=== PATIENT | female | born 1955 | race Caucasian/White ===

== ENCOUNTER 2017-01-08 13:11 | Emergency (ER) | payer OTHER ==
[2017-01-08] MEDS ORDERED: BENADRYL 50 MG/ML IV ONE (14:39)
[2017-01-08] MEDS ORDERED: Hydromorphone 1 mg/ml Ampule IV ONE (14:39)
[2017-01-08] MEDS ORDERED: Hydromorphone 1 mg/ml Ampule ONE (14:49)
[2017-01-08] MEDS ORDERED: BENADRYL 50 MG/ML ONE (14:49)
[2017-01-08 15:13] LABS: BASOPHIL % 0.3 % (0.0-0.4); Eosinophil % 0.5 % (0.00-5.0); Granulocytes % 63.6 % (36.0-66.0); Lymphocytes % 30.4 % (24.0-44.0); Mean Cell Volume 91.6 fl (78-100); Mean Corpuscular Hemoglobin 29.6 pg (26-32); Mean Platelet Volume 9.5 fl (6-9.5); Monocytes % 5.2 % (0.0-12.0); Platelet Count 322 K/mm3 (150-450); Red Blood Count 4.87 M/mm3 (4.1-5.4); Red Cell Distribution Width 14.9 % (11.5-14.0); White Blood Count 7.7 K/mm3 (4.0-10.5)
[2017-01-08 15:22] LABS: ALBUMIN 3.8 g/dL (3.4-5.0); ALKALINE PHOSPHATASE 112 U/L (46-116); ANION GAP 14.9 MEQ/L (5-15); BLOOD UREA NITROGEN 15 mg/dL (9-20); CHLORIDE 104 mEq/L (98-107); Carbon Dioxide 26.6 mEq/L (21-32); Glucose 102 MG/DL (70-110); SGOT/AST 31 U/L (15-37); SGPT/ALT 37 U/L (12-78); SODIUM 142 mEq/L (136-145); Total Protein 8.4 gm/dL (6.4-8.2)
--- NOTE | 2017-01-08 15:29 | ERPHSYRPT ---
- History of Present Illness Time Seen by Provider: 01/08/17 14:28 Source: patient Patient Subjective Stated Complaint: pt states 4 days ago she fell up against a rocking chair and injured rigth ribs and right mid back. Triage Nursing Assessment: pt pink,warm, dry. pt ambulated into Er without difficuly. no bruising or deformity noted to right ribs or back. old bruise noted to left posterior upper leg. Physician History: CC: right rib injury HX; 61 y/o patient of Dr Bonner. She tripped while cleaning a bedroom Saturday ( 5 days ago). She struck right anterior ribs on a chair. Pain in the ribs and abdomen has worsened. Not short of air. No blood thinners. Aching pain and sometimes sharp. ILL: HTN, high chol, GERD Here with a friend Allergies/Adverse Reactions: bupropion HCl [From Wellbutrin] Allergy (Verified 01/08/17 13:45) Home Medications: Alprazolam [Xanax 0.5 mg] 0.5 mg PO BIDPRN PRN 11/27/15 [History] Bisoprolol Fumarate/Hctz [Ziac 10-6.25 mg Tablet] 1 each PO DAILY 11/27/15 [ History] Omeprazole [Prilosec] 40 mg PO DAILY 11/27/15 [History] Simvastatin 20 mg PO DAILY 11/27/15 [History] Acetaminophen/Diphenhydramine [Tylenol Pm Ex-Strength Caplet] 1 each PO HSPRN PRN 06/15/16 [History] Hx Tetanus, Diphtheria Vaccination/Date Given: Yes (unknown) Hx Influenza Vaccination/Date Given: No Hx Pneumococcal Vaccination/Date Given: No Immunizations Up to Date: Yes - Review of Systems Constitutional: No Symptoms, No Fever, No Chills Respiratory: No Cough, No Dyspnea Cardiac: Chest Pain (right anterior ribs), No Edema Abdominal/Gastrointestinal: No Nausea, No Vomiting Musculoskeletal: No Back Pain Neurological: No Focal Weakness, No Headache, No Parasthesia All Other Systems: Reviewed and Negative - Past Medical History Pertinent Past Medical History: Yes Neurological History: No Pertinent History ENT History: No Pertinent History Cardiac History: High Cholesterol, Hypertension Respiratory History: No Pertinent History Endocrine Medical History: No Pertinent History Musculoskeletal History: No Pertinent History GI Medical History: GERD History: No Pertinent History Psycho-Social History: Depression Female Reproductive Disorders: No Pertinent History - Past Surgical History Past Surgical History: Yes Neuro Surgical History: No Pertinent History Cardiac: No Pertinent History Respiratory: No Pertinent History Gastrointestinal: Cholecystectomy Genitourinary: No Pertinent History Musculoskeletal: No Pertinent History Female Surgical History: Hysterectomy Other Surgical History: breast bx - Social History Smoking Status: Current every day smoker Exposure to second hand smoke: No Drug Use: none Patient Lives Alone: No - Nursing Vital Signs Nursing Vital Signs: Initial Vital Signs Temperature 98.4 F Temperature Source Oral Pulse Rate 70 Respiratory Rate 18 Blood Pressure [] 102/58 Pain Intensity 3 - Physical Exam General Appearance: alert Eye Exam: PERRL/EOMI Ears, Nose, Throat Exam: moist mucous membranes Neck Exam: normal inspection, non-tender, supple Respiratory Exam: normal breath sounds, chest tenderness (right ribs) Cardiovascular Exam: regular rate/rhythm Gastrointestinal/Abdomen Exam: soft, tenderness (RUQ ), No ecchymosis Back Exam: normal inspection, No vertebral tenderness Neurologic Exam: alert, oriented x 3, cooperative, sensation nml, No motor deficits Skin Exam: warm, dry SpO2 Interpretation: normal SpO2: 95 Oxygen Delivery: Room Air - Course Nursing assessment & vital signs reviewed: Yes - Radiology Exams cxr X-ray Interpretation: Reviewed by me, Negative, No Fracture, No Pneumothorax Ordered Tests: Active Orders 24 hr Category Date Time Status IV Insertion STAT Care 01/08/17 14:39 Active ABDOMEN AND PELVIS W CONTRAST [CT] Stat Exams 01/08/17 14:39 Taken CHEST 2 VIEWS (PA AND LAT) Stat Exams 01/08/17 14:39 Taken CBC W DIFF Stat Lab 01/08/17 14:48 Completed CMP Stat Lab 01/08/17 14:48 Completed Medication Summary Discontinued Medications Generic Name Dose Route Start Last Admin Trade Name Freq PRN Reason Stop Dose Admin Diphenhydramine HCl 25 mg 01/08/17 14:39 01/08/17 14:51 Benadryl 50 Mg/Ml IV 01/08/17 14:40 25 mg STAT ONE Administration Diphenhydramine HCl Confirm 01/08/17 14:49 Benadryl 50 Mg/Ml Administered 01/08/17 14:50 Dose 50 mg .ROUTE .STK-MED ONE Hydromorphone HCl 1 mg 01/08/17 14:39 01/08/17 14:51 Hydromorphone 1 Mg/Ml Ampule IV 01/08/17 14:40 1 mg STAT ONE Administration Hydromorphone HCl Confirm 01/08/17 14:49 Hydromorphone 1 Mg/Ml Ampule Administered 01/08/17 14:50 Dose 1 mg .ROUTE .STK-MED ONE Lab/Rad Data: Laboratory Result Diagrams 01/08/17 14:48 01/08/17 14:48 Laboratory Results 01/08/17 01/08/17 Range/Units 14:48 14:48 WBC 7.7 (4.0-10.5) K/mm3 RBC 4.87 (4.1-5.4) M/mm3 Hgb 14.4 (12.0-16.0) gm/dl Hct 44.6 (35-47) % MCV 91.6 (78-100) fl MCH 29.6 (26-32) pg MCHC 32.3 (32-36) g/dl RDW 14.9 H (11.5-14.0) % Plt Count 322 (150-450) K/mm3 MPV 9.5 (6-9.5) fl Gran % 63.6 (36.0-66.0) % Lymphocytes % 30.4 (24.0-44.0) % Monocytes % 5.2 (0.0-12.0) % Eosinophils % 0.5 (0.00-5.0) % Basophils % 0.3 (0.0-0.4) % Basophils # 0.02 (0-0.4) Sodium 142 (136-145) mEq/L Potassium 4.0 (3.5-5.1) mEq/L Chloride 104 (98-107) mEq/L Carbon Dioxide 26.6 (21-32) mEq/L Anion Gap 14.9 (5-15) MEQ/L BUN 15 (9-20) mg/dL Creatinine 0.94 (0.55-1.30) mg/dl Estimated GFR > 60 ML/MIN Glucose 102 (70-110) MG/DL Calcium 9.6 (8.5-10.1) mg/dL Total Bilirubin 1.20 H (0.2-1.0) mg/dL AST 31 (15-37) U/L ALT 37 (12-78) U/L Alkaline Phosphatase 112 (46-116) U/L Serum Total Protein 8.4 H (6.4-8.2) gm/dL Albumin 3.8 (3.4-5.0) g/dL - Progress Progress Note: 01/08/17 16:34 CT abd/pelivs: beatrice 4:28 PM 01/08/2017: No comps. Negative CT abd/pel w/ contrast exam. 01/08/17 16:38 Pt wants to take norco. Discussed risks associated with it and xanax. She has follow up with Dr Lianet Sal. Suspect occult rib fx. Counseled pt/family regarding: diagnosis, need for follow-up, rad results - Departure Time of Disposition: 16:39 Departure Disposition: Home Clinical Impression: Right rib fracture Qualifiers: Encounter type: initial encounter Rib fracture type: single rib Fracture type: closed Qualified Code(s): S22.31XA - Fracture of one rib, right side, initial encounter for closed fracture Condition: Stable Critical Care Time: No Referrals: MAXIMILIANO BONNER MD [Primary Care Provider] - Instructions: Rib Fracture Additional Instructions: Ice packs off and on. Rx norco- no driving or operating machinery today or while taking. Follow up with Dr Bonner. Prescriptions: Hydrocodone Bit/Acetaminophen [[place] 5-325 Tablet] 1 each PO Q6H PRN PRN #15 tablet PRN Reason: Pain
[2017-01-08 16:48] VITALS: BP 110/60; PULSE 67; O2SAT 98
--- NOTE | 2017-01-08 20:10 | XRAY ---
Indication: Right upper quadrant/rib pain following injury. Comparison: June 15, 2016. AP/lateral chest again demonstrates normal heart and lungs. Bony thorax intact with stable mild osteopenia and degenerative changes.
--- NOTE | 2017-01-08 20:14 | XRAY ---
Indication: Right upper quadrant pain following fall. Multiple contiguous axial images obtained through the abdomen and pelvis using 80 cc Isovue 370 contrast only. Comparison: None Lung bases demonstrates minimal bibasilar dependent atelectasis. Heart is not enlarged. Noncontrasted stomach and bowel loops appear nonobstructed. Normal appendix. No free fluid/air. Previous reported cholecystectomy and hysterectomy. Multiple pelvic phleboliths. Remaining liver, pancreas, spleen, adrenal glands, kidneys, ureters, bladder, and aorta appear normal in CT appearance and attenuation. No pathologic retroperitoneal lymphadenopathy. Osseous structures intact with minimal lower spinal degenerative changes and minimal dextroscoliosis. Impression: CT abdomen/pelvis with contrast exam is negative. CTDI 22.19
== END 2017-01-08 16:48 | disposition home or self-care (01) ==
LOC: ED 13:11
DX: S22.31XA Fracture of one rib, right side, initial encounter for closed fracture (principal); W22.03XA Walked into furniture, initial encounter
CPT/HCPCS: 36000; 36415; 71020; 74177; 80053; 85025; 96374; 96375; 99284; J1170; J1200

== ENCOUNTER 2017-09-22 17:05 | Emergency (ER) | payer OTHER ==
[2017-09-22] MEDS ORDERED: Pepcid 20 MG VIAL IV ONE ×2 (17:18→17:25)
[2017-09-22] MEDS ORDERED: BABY ASPIRIN 81 MG CHEW PO ONE (17:23)
[2017-09-22] MEDS ORDERED: PROVENTIL 2.5 MG/3 ML NEB IH ONE ×4 (17:23→19:27)
[2017-09-22] MEDS ORDERED: BABY ASPIRIN 81 MG CHEW ONE (17:25)
[2017-09-22 17:50] LABS: BASOPHIL % 0.2 % (0.0-0.4); Basophil (Absolute #) 0.02 (0-0.4); Eosinophil % 2.5 % (0.00-5.0); Granulocyte Absolute (ANC) 5.95 (1.4-6.9); Hemoglobin 13.8 gm/dl (12.0-16.0); Lymphocyte (Absolute #) 1.25 (1.0-4.6); Lymphocytes % 15.5 % (24.0-44.0); Mean Cell Volume 92.3 fl (78-100); Mean Corpuscular Hemoglobin 30.3 pg (26-32); Mean Corpuscular Hgb Concent. 32.9 g/dl (32-36); Mean Platelet Volume 10.1 fl (6-9.5); Monocyte (Absolute #) 0.63 (0.0-1.3); Monocytes % 7.8 % (0.0-12.0); Platelet Count 270 K/mm3 (150-450); Red Blood Count 4.55 M/mm3 (4.1-5.4); Red Cell Distribution Width 14.3 % (11.5-14.0); White Blood Count 8.1 K/mm3 (4.0-10.5)
[2017-09-22 18:10] LABS: ALBUMIN 4.1 g/dL (3.5-5.0); ALKALINE PHOSPHATASE 110 U/L (38-126); ANION GAP 16.2 MEQ/L (5-15); BLOOD UREA NITROGEN 16 mg/dL (7-17); CHLORIDE 102 mmol/L (98-107); Calcium 9.3 mg/dL (8.4-10.2); Carbon Dioxide 26 mmol/L (22-30); Glucose 103 mg/dL (74-106); SGOT/AST 32 U/L (14-36); SGPT/ALT 29 U/L (0-35); SODIUM 141 mmol/L (137-145); Total Protein 7.3 g/dL (6.3-8.2)
[2017-09-22] MEDS ORDERED: Vibramycin 100 MG PO ONE (19:20)
[2017-09-22] MEDS ORDERED: ROCEPHIN 1 Gm-D5w 50 ml Bag** 1 G/50 ML IVPB IV STA (19:20)
[2017-09-22] MEDS ORDERED: TORAdol 30 mg Injection IV ONE (19:27)
--- NOTE | 2017-09-22 19:27 | ERPHSYRPT ---
- History of Present Illness Time Seen by Provider: 09/22/17 17:18 Source: patient Patient Subjective Stated Complaint: arrived per er for cos of chest pain off and on since yesterday, and pain radiates all over chest,cough, no fever, Triage Nursing Assessment: pt alert, face flushed.resp easy, skin w/d,chest clear, no edema,pain reproducable to right side of chest Physician History: CC: cough Hx: 61 y/o patient of Dr Bonner. She has few day hx of congestion, cough, pain in her chest with cough. Not particularly short of breath. Worsened today and yesterday. Feels like a knife when she cough. She took prevacid and nexium yesterday which helped but did not help today. Social: Nonsmoker Surg: GB, breast bx, hyster ALL: Wellbutrin ILL: no hx of heart disease, prior stress test nl 1 y/o. No DM. Allergies/Adverse Reactions: bupropion HCl [From Wellbutrin] Allergy (Verified 09/22/17 17:15) Home Medications: Alprazolam [Xanax 0.5 mg] 0.5 mg PO BIDPRN PRN 11/27/15 [History] Bisoprolol/Hydrochlorothiazide [Ziac 10-6.25 mg Tablet] 1 each PO DAILY [History] Omeprazole [Prilosec] 40 mg PO DAILY 11/27/15 [History] Simvastatin 20 mg PO DAILY 11/27/15 [History] Acetaminophen/Diphenhydramine [Tylenol Pm Ex-Strength Caplet] 1 each PO HSPRN PRN 06/15/16 [History] Hx Tetanus, Diphtheria Vaccination/Date Given: Yes (unknown) Hx Influenza Vaccination/Date Given: No Hx Pneumococcal Vaccination/Date Given: No Immunizations Up to Date: Yes - Review of Systems Constitutional: Chills, Fatigue, Malaise, No Fever Eyes: No Symptoms Ears, Nose, & Throat: No Symptoms Respiratory: Cough, No Dyspnea Cardiac: Chest Pain (with cough), No Edema, No Syncope Abdominal/Gastrointestinal: No Abdominal Pain, No Nausea, No Vomiting, No Diarrhea Skin: No Rash Neurological: No Headache All Other Systems: Reviewed and Negative - Past Medical History Pertinent Past Medical History: Yes Neurological History: No Pertinent History ENT History: No Pertinent History Cardiac History: High Cholesterol, Hypertension Respiratory History: No Pertinent History Endocrine Medical History: No Pertinent History Musculoskeletal History: No Pertinent History GI Medical History: GERD, Hernia History: No Pertinent History Psycho-Social History: Depression Female Reproductive Disorders: No Pertinent History - Past Surgical History Past Surgical History: Yes Neuro Surgical History: No Pertinent History Cardiac: No Pertinent History Respiratory: No Pertinent History Gastrointestinal: Cholecystectomy Genitourinary: No Pertinent History Musculoskeletal: No Pertinent History Female Surgical History: Hysterectomy Other Surgical History: breast bx - Social History Smoking Status: Never smoker Exposure to second hand smoke: No Drug Use: none Patient Lives Alone: No - Female History Hx Last Menstrual Period: post - Nursing Vital Signs Nursing Vital Signs: Initial Vital Signs Temperature 99.5 F 09/22/17 17:06 Pulse Rate 92 H 09/22/17 17:06 Respiratory Rate 16 09/22/17 17:06 Blood Pressure 112/79 09/22/17 17:06 O2 Sat by Pulse Oximetry 96 09/22/17 17:06 Pain Scale Pain Intensity 5 - Physical Exam General Appearance: alert Eye Exam: PERRL/EOMI Ears, Nose, Throat Exam: normal ENT inspection, moist mucous membranes Neck Exam: normal inspection, non-tender, supple Respiratory Exam: crackles/rales (RLL posteriorly) Cardiovascular Exam: regular rate/rhythm, No murmur Gastrointestinal/Abdomen Exam: soft, No tenderness, No distention Back Exam: normal inspection, No CVA tenderness Extremity Exam: normal inspection, normal range of motion Neurologic Exam: alert, oriented x 3, cooperative, sensation nml, No motor deficits Skin Exam: warm, dry, No rash SpO2 Interpretation: normal SpO2: 95 Oxygen Delivery: Room Air - Course Nursing assessment & vital signs reviewed: Yes EKG Interpreted by Me: RATE (84), Sinus Rhythm, NORMAL AXIS, NORMAL INTERVALS ( QTc 433), NORMAL QRS, NORMAL ST-T - Radiology Exams cxr X-ray Interpretation: Interpreted by me (RML infiltrates) Ordered Tests: Active Orders 24 hr Category Date Time Status Slitting Machine Feeder STAT Care 09/22/17 17:19 Active EKG-ER Only STAT Care 09/22/17 17:18 Active IV Insertion STAT Care 09/22/17 17:18 Active Pulse Oximetry (ED) STAT Care 09/22/17 17:18 Active CHEST 1 VIEW (PORTABLE) Stat Exams 09/22/17 17:18 Taken CBC W DIFF Stat Lab 09/22/17 17:30 Completed CMP Stat Lab 09/22/17 17:30 Completed LIPASE Stat Lab 09/22/17 17:30 Completed Lactic Acid Stat Lab 09/22/17 17:23 Results TROPONIN Q3H Lab 09/22/17 17:30 Completed TROPONIN Q3H Lab 09/22/17 20:30 Ordered TROPONIN Q3H Lab 09/22/17 23:30 Ordered TROPONIN Q3H Lab 09/23/17 02:30 Ordered TROPONIN Q3H Lab 09/23/17 05:30 Ordered Respiratory Nebulizer STAT RT 09/22/17 17:23 Active Respiratory Nebulizer STAT RT 09/22/17 19:20 Active Medication Summary Generic Name Dose Route Start Last Admin Trade Name Freq PRN Reason Stop Dose Admin Ceftriaxone Sodium/Dextrose 1 g in 50 mls @ 100 mls/hr 09/22/17 19:20 Rocephin 1 Gm-D5w 50 Ml Bag IV 09/22/17 19:49 STAT STA Ketorolac Tromethamine 15 mg 09/22/17 19:27 Toradol 30 Mg Injection IV 09/22/17 19:28 STAT ONE Discontinued Medications Generic Name Dose Route Start Last Admin Trade Name Freq PRN Reason Stop Dose Admin Albuterol Sulfate 2.5 mg 09/22/17 17:23 09/22/17 17:40 Proventil 2.5 Mg/3 Ml Neb IH 09/22/17 17:24 2.5 mg STAT ONE Administration Albuterol Sulfate Confirm 09/22/17 17:39 Proventil 2.5 Mg/3 Ml Neb Administered 09/22/17 17:40 Dose 2.5 mg IH .STK-MED ONE Albuterol Sulfate 2.5 mg 09/22/17 19:20 Proventil 2.5 Mg/3 Ml Neb IH 09/22/17 19:21 STAT ONE Aspirin 81 mg 09/22/17 17:23 09/22/17 17:53 Baby Aspirin 81 Mg Chew PO 09/22/17 17:24 81 mg STAT ONE Administration Aspirin Confirm 09/22/17 17:25 Baby Aspirin 81 Mg Chew Administered 09/22/17 17:26 Dose 81 mg .ROUTE .STK-MED ONE Doxycycline Hyclate 100 mg 09/22/17 19:20 Vibramycin 100 Mg PO 09/22/17 19:21 STAT ONE Famotidine 20 mg 09/22/17 17:18 09/22/17 17:53 Pepcid 20 Mg Vial IV 09/22/17 17:19 20 mg STAT ONE Administration Famotidine Confirm 09/22/17 17:25 Pepcid 20 Mg Vial Administered 09/22/17 17:26 Dose 20 mg IV .STK-MED ONE Lab/Rad Data: Laboratory Result Diagrams 09/22/17 17:30 09/22/17 17:30 Laboratory Results 09/22/17 09/22/17 09/22/17 Range/Units 17:30 17:30 17:30 WBC (4.0-10.5) K/mm3 RBC (4.1-5.4) M/mm3 Hgb (12.0-16.0) gm/dl Hct (35-47) % MCV (78-100) fl MCH (26-32) pg MCHC (32-36) g/dl RDW (11.5-14.0) % Plt Count (150-450) K/mm3 MPV (6-9.5) fl Gran % (36.0-66.0) % Lymphocytes % (24.0-44.0) % Monocytes % (0.0-12.0) % Eosinophils % (0.00-5.0) % Basophils % (0.0-0.4) % Basophils # (0-0.4) Sodium 141 (137-145) mmol/L Potassium 4.0 (3.5-5.1) mmol/L Chloride 102 (98-107) mmol/L Carbon Dioxide 26 (22-30) mmol/L Anion Gap 16.2 H (5-15) MEQ/L BUN 16 (7-17) mg/dL Creatinine 0.80 (0.52-1.04) mg/dL Estimated GFR > 60 ML/MIN Glucose 103 (74-106) mg/dL Lactic Acid (0.4-2.0) Calcium 9.3 (8.4-10.2) mg/dL Total Bilirubin 1.00 (0.2-1.3) mg/dL AST 32 (14-36) U/L ALT 29 (0-35) U/L Alkaline Phosphatase 110 (38-126) U/L Troponin I < 0.012 (0.000-0.034) ng/mL Serum Total Protein 7.3 (6.3-8.2) g/dL Albumin 4.1 (3.5-5.0) g/dL Lipase 121 (23-300) U/L 09/22/17 09/22/17 Range/Units 17:30 17:23 WBC 8.1 (4.0-10.5) K/mm3 RBC 4.55 (4.1-5.4) M/mm3 Hgb 13.8 (12.0-16.0) gm/dl Hct 42.0 (35-47) % MCV 92.3 (78-100) fl MCH 30.3 (26-32) pg MCHC 32.9 (32-36) g/dl RDW 14.3 H (11.5-14.0) % Plt Count 270 (150-450) K/mm3 MPV 10.1 H (6-9.5) fl Gran % 74.0 H (36.0-66.0) % Lymphocytes % 15.5 L (24.0-44.0) % Monocytes % 7.8 (0.0-12.0) % Eosinophils % 2.5 (0.00-5.0) % Basophils % 0.2 (0.0-0.4) % Basophils # 0.02 (0-0.4) Sodium (137-145) mmol/L Potassium (3.5-5.1) mmol/L Chloride (98-107) mmol/L Carbon Dioxide (22-30) mmol/L Anion Gap (5-15) MEQ/L BUN (7-17) mg/dL Creatinine (0.52-1.04) mg/dL Estimated GFR ML/MIN Glucose (74-106) mg/dL Lactic Acid 2.0 (0.4-2.0) Calcium (8.4-10.2) mg/dL Total Bilirubin (0.2-1.3) mg/dL AST (14-36) U/L ALT (0-35) U/L Alkaline Phosphatase (38-126) U/L Troponin I (0.000-0.034) ng/mL Serum Total Protein (6.3-8.2) g/dL Albumin (3.5-5.0) g/dL Lipase (23-300) U/L - Progress Progress Note: 09/22/17 19:26 She has pain with coughing. This appears to be pneumonic process. She wants to go home. Will release with instr. Counseled pt/family regarding: lab results, diagnosis, need for follow-up, rad results - Departure Time of Disposition: 19:28 Departure Disposition: Home Clinical Impression: RML pneumonia Condition: Fair Critical Care Time: No Referrals: MAXIMILIANO BONNER MD [Primary Care Provider] - Instructions: Pneumonia, Adult (DC), Atypical Chest Pain Additional Instructions: Rx doxycycline. Rx omnicef. Rx albuterol. Use tylneol or ibuprofen every 6 hours for pain. Return for difficulty breathing, changed chest pain, concerns. Follow up with Dr Bonner in 1-2 days. Prescriptions: Albuterol Sulfate [Albuterol Sulfate Hfa] 2 puff IH Q4-6HPRN PRN #1 [id number] PRN Reason: cough or wheeze Cefdinir [Omnicef 300 mg] 300 mg PO BID #20 capsule Doxycycline Hyclate 100 mg [Vibramycin 100 MG] 100 mg PO BID #20 tab
[2017-09-22] MEDS ORDERED: TORAdol 30 mg Injection ONE (19:41)
[2017-09-22] MEDS ORDERED: Vibramycin 100 MG ONE (19:41)
[2017-09-22] MEDS ORDERED: ROCEPHIN 1 Gm-D5w 50 ml Bag** 1 G/50 ML IVPB IV ONE (19:41)
[2017-09-22 20:16] VITALS: BP 149/69; PULSE 83; O2SAT 92
--- NOTE | 2017-09-23 08:59 | XRAY ---
Indication: Chest pain. Comparison: January 08, 2017. Portable chest demonstrates new right middle lobe infiltrate versus atelectasis. Remaining heart and lungs unremarkable. Bony thorax intact again with mild degenerative changes.
== END 2017-09-22 20:26 | disposition home or self-care (01) ==
LOC: ED 17:05
DX: J18.9 Pneumonia, unspecified organism (principal); Z79.899 Other long term (current) drug therapy; R07.9 Chest pain, unspecified
CPT/HCPCS: 36000; 36415; 71045; 80053; 83605; 83690; 84484; 85025; 93005; 93041; 94150; 94640; 96365; 96374; 99283; 99284; J0696; J1885; A9270-GY

== ENCOUNTER 2019-09-19 21:50 | Emergency (ER) | payer MEDICARE ==
[2019-09-19] MEDS ORDERED: PROTONIX 40 MG IV IV ONE ×2 (22:11→22:42)
[2019-09-19] MEDS ORDERED: Zofran 4 MG/2 ML VIAL IV ONE (22:11)
[2019-09-19] MEDS ORDERED: Sodium Chloride 0.9% 1000 ML 1,000 ML IV STA (22:11)
[2019-09-19] MEDS ORDERED: Hydromorphone 1 mg/ml Ampule IV ONE (22:11)
[2019-09-19] MEDS ORDERED: Pepcid 20 MG VIAL IV ONE ×2 (22:11→22:42)
--- NOTE | 2019-09-19 22:11 | ERPHSYRPT ---
- History of Present Illness Time Seen by Provider: 09/19/19 22:07 Historian: patient, family Exam Limitations: no limitations Physician History: pt states about a year hx of abd pain , prev had GB out and they did a scan but did not find problem and did a CT a month ago but pain is too severe to stand tonight; tender at both upper quads on exam Timing/Duration: day(s) Quality: cramping, fullness, sharpness, stabbing Abdominal Pain Onset Location: RUQ, RLQ Pain Radiation: epigastric Severity of Pain-Max: severe Severity of Pain-Current: severe Modifying Factors: Improves With: movement Associated Symptoms: nausea Previous symptoms: different symptoms, recently seen, recently treated Allergies/Adverse Reactions: bupropion HCl [From Wellbutrin] Allergy (Verified 09/19/19 22:13) metoclopramide Adverse Reaction (Verified 09/19/19 22:13) Home Medications: Bisoprolol/Hydrochlorothiazide [Ziac 10-6.25 mg Tablet] 1 each PO DAILY [History] Omeprazole [Prilosec] 40 mg PO DAILY 11/27/15 [History] Simvastatin 20 mg PO DAILY 11/27/15 [History] Alprazolam [Xanax] 0.5 mg PO BID PRN 09/19/19 [History] Aspirin EC 81 mg [Ecotrin 81 mg] 81 mg PO DAILY 09/19/19 [History] Hx Tetanus, Diphtheria Vaccination/Date Given: Yes (unknown) Hx Influenza Vaccination/Date Given: No Hx Pneumococcal Vaccination/Date Given: No - Review of Systems Constitutional: No Fever, No Chills Eyes: No Symptoms Ears, Nose, & Throat: No Symptoms Respiratory: No Cough, No Dyspnea Cardiac: No Chest Pain, No Edema, No Syncope Abdominal/Gastrointestinal: Abdominal Pain, Nausea, No Vomiting, No Diarrhea Genitourinary Symptoms: No Dysuria Musculoskeletal: No Back Pain, No Neck Pain Skin: No Rash Neurological: No Dizziness, No Focal Weakness, No Sensory Changes Psychological: No Symptoms Endocrine: No Symptoms All Other Systems: Reviewed and Negative - Past Medical History Pertinent Past Medical History: Yes Neurological History: No Pertinent History ENT History: No Pertinent History Cardiac History: High Cholesterol, Hypertension Respiratory History: No Pertinent History Endocrine Medical History: No Pertinent History Musculoskeletal History: No Pertinent History GI Medical History: GERD, Hernia History: No Pertinent History Psycho-Social History: Depression Female Reproductive Disorders: No Pertinent History - Past Surgical History Past Surgical History: Yes Neuro Surgical History: No Pertinent History Cardiac: No Pertinent History Respiratory: No Pertinent History Gastrointestinal: Cholecystectomy Genitourinary: No Pertinent History Musculoskeletal: No Pertinent History Female Surgical History: Hysterectomy Other Surgical History: breast bx - Social History Smoking Status: Never smoker Exposure to second hand smoke: No Drug Use: none Patient Lives Alone: No - Nursing Vital Signs Nursing Vital Signs: Initial Vital Signs Temperature 98.1 F 09/19/19 22:01 Pulse Rate 84 09/19/19 22:01 Respiratory Rate 18 09/19/19 22:01 Blood Pressure 114/76 09/19/19 22:01 O2 Sat by Pulse Oximetry 95 09/19/19 22:01 Pain Scale Pain Intensity 6 - Physical Exam General Appearance: no apparent distress, alert Eye Exam: PERRL/EOMI, eyes nml inspection Ears, Nose, Throat Exam: normal ENT inspection, pharynx normal, moist mucous membranes Neck Exam: normal inspection, non-tender, supple, full range of motion Respiratory Exam: normal breath sounds, lungs clear, No respiratory distress Cardiovascular Exam: regular rate/rhythm, normal heart sounds Gastrointestinal/Abdomen Exam: soft, tenderness, guarding, No mass Back Exam: normal inspection, normal range of motion, No CVA tenderness, No vertebral tenderness Extremity Exam: normal inspection, normal range of motion, pelvis stable Neurologic Exam: alert, oriented x 3, cooperative, normal mood/affect, nml cerebellar function, sensation nml, No motor deficits Skin Exam: normal color, warm, dry - Course Nursing assessment & vital signs reviewed: Yes EKG Interpreted by Me: Sinus Rhythm, NORMAL INTERVALS, Non-specific ST Changes - CT Exams Abdomen/Pelvis CT Interpretation: Tele-radiologist Report, Normal Appendix, No appendicitis, Other (lung nodules, umb hernia,) Ordered Tests: Active Orders 24 hr Category Date Time Status EKG-ER Only STAT Care 09/19/19 22:11 Active IV Insertion STAT Care 09/19/19 22:11 Active NPO (ED) STAT Care 09/19/19 22:11 Active ABDOMEN AND PELVIS W/0 CONTRAS [CT] Stat Exams 09/19/19 22:11 Taken AMYLASE Stat Lab 09/19/19 22:49 Completed CBC W DIFF Stat Lab 09/19/19 22:49 Completed CMP Stat Lab 09/19/19 22:49 Completed CULTURE,URINE Stat Lab 09/19/19 22:18 Received LIPASE Stat Lab 09/19/19 22:49 Completed Lactic Acid Stat Lab 09/19/19 22:37 Completed TROPONIN Q3H Lab 09/19/19 22:49 Completed TROPONIN Q3H Lab 09/20/19 01:15 Ordered TROPONIN Q3H Lab 09/20/19 04:15 Ordered TROPONIN Q3H Lab 09/20/19 07:15 Ordered TROPONIN Q3H Lab 09/20/19 10:15 Ordered UA W/RFX UR CULTURE Stat Lab 09/19/19 22:18 Completed Medication Summary Discontinued Medications Generic Name Dose Route Start Last Admin Trade Name Freq PRN Reason Stop Dose Admin Al Hydrox/Mg Hydrox/Simethicone 20 ml 09/20/19 00:32 Maalox Es 30 Ml Unit Dose PO 09/20/19 00:33 STAT ONE Famotidine 20 mg 09/19/19 22:11 09/19/19 22:48 Pepcid 20 Mg Vial IV 09/19/19 22:12 20 mg STAT ONE Administration Famotidine Confirm 09/19/19 22:42 Pepcid 20 Mg Vial Administered 09/19/19 22:43 Dose 20 mg IV .STK-MED ONE Hydromorphone HCl 1 mg 09/19/19 22:11 09/19/19 22:50 Hydromorphone 1 Mg/Ml Ampule IV 09/19/19 22:12 1 mg STAT ONE Administration Hydromorphone HCl Confirm 09/19/19 22:42 Hydromorphone 1 Mg/Ml Ampule Administered 09/19/19 22:43 Dose 1 mg .ROUTE .STK-MED ONE Hydromorphone HCl 0.5 mg 09/20/19 00:32 Hydromorphone 1 Mg/Ml Ampule IV 09/20/19 00:33 STAT ONE Sodium Chloride 1,000 mls @ 999 mls/hr 09/19/19 22:11 09/19/19 22:48 Sodium Chloride 0.9% 1000 Ml IV 09/19/19 23:11 999 mls/hr .Q1H1M STA Administration Sodium Chloride Confirm 09/19/19 22:42 Sodium Chloride 0.9% 1000 Ml Administered 09/19/19 22:43 Dose 1,000 mls @ ud .ROUTE .STK-MED ONE Ceftriaxone Sodium/Dextrose 1 g in 50 mls @ 100 mls/hr 09/19/19 23:06 23:14 Rocephin 1 Gm-D5w 50 Ml Bag IV 09/19/19 23:35 100 ml/hr STAT STA 100 mls/hr Administration Ceftriaxone Sodium/Dextrose Confirm 09/19/19 23:10 Rocephin 1 Gm-D5w 50 Ml Bag Administered 09/19/19 23:11 Dose 1 g in 50 mls @ ud IV .STK-MED ONE Ondansetron HCl 4 mg 09/19/19 22:11 09/19/19 22:47 Zofran 4 Mg/2 Ml Vial IV 09/19/19 22:12 4 mg STAT ONE Administration Ondansetron HCl Confirm 09/19/19 22:42 Zofran 4 Mg/2 Ml Vial Administered 09/19/19 22:43 Dose 4 mg .ROUTE .STK-MED ONE Pantoprazole Sodium 40 mg 09/19/19 22:11 09/19/19 22:50 Protonix 40 Mg Iv IV 09/19/19 22:12 40 mg STAT ONE Administration Pantoprazole Sodium Confirm 09/19/19 22:42 Protonix 40 Mg Iv Administered 09/19/19 22:43 Dose 40 mg IV .STK-MED ONE Potassium Chloride 20 meq 09/20/19 00:31 Klor Con 10 Meq PO 09/20/19 00:32 STAT ONE Lab/Rad Data: Laboratory Result Diagrams 09/19/19 22:49 09/19/19 22:49 Laboratory Results 09/19/19 09/19/19 09/19/19 Range/Units 22:49 22:49 22:49 WBC 7.4 (4.0-10.5) K/mm3 RBC 4.39 (4.1-5.4) M/mm3 Hgb 13.4 (12.0-16.0) gm/dl Hct 40.8 (35-47) % MCV 92.9 (78-100) fl MCH 30.5 (26-32) pg MCHC 32.8 (32-36) g/dl RDW 14.0 (11.5-14.0) % Plt Count 293 (150-450) K/mm3 MPV 9.5 (7.5-11.0) fl Gran % 51.6 (36.0-66.0) % Eos # (Auto) 0.07 (0-0.5) Absolute Lymphs (auto) 2.88 (1.0-4.6) Absolute Monos (auto) 0.57 (0.0-1.3) Lymphocytes % 39.2 (24.0-44.0) % Monocytes % 7.8 (0.0-12.0) % Eosinophils % 1.0 (0.00-5.0) % Basophils % 0.4 (0.0-0.4) % Absolute Granulocytes 3.80 (1.4-6.9) Basophils # 0.03 (0-0.4) Sodium 140 (137-145) mmol/L Potassium 3.3 L (3.5-5.1) mmol/L Chloride 105 (98-107) mmol/L Carbon Dioxide 25 (22-30) mmol/L Anion Gap 13.0 (5-15) MEQ/L BUN 17 (7-17) mg/dL Creatinine 0.77 (0.52-1.04) mg/dL Estimated GFR > 60.0 ML/MIN Glucose 116 H (74-106) mg/dL Lactic Acid (0.4-2.0) Calcium 9.4 (8.4-10.2) mg/dL Total Bilirubin 1.10 (0.2-1.3) mg/dL AST 26 (14-36) U/L ALT 21 (0-35) U/L Alkaline Phosphatase 103 (38-126) U/L Troponin I < 0.012 (0.000-0.034) ng/mL Serum Total Protein 7.8 (6.3-8.2) g/dL Albumin 4.2 (3.5-5.0) g/dL Amylase 65 (30-110) U/L Lipase 117 (23-300) U/L Urine Color (YELLOW) Urine Appearance (CLEAR) Urine pH (5-6) Ur Specific [place] (1.005-1.025) Urine Protein (Negative) Urine Ketones (NEGATIVE) Urine Blood (0-5) Alfred[place]/ul Urine Nitrite (NEGATIVE) Urine Bilirubin (NEGATIVE) Urine Urobilinogen (0-1) mg/dL Ur Leukocyte Esterase (NEGATIVE) Urine WBC (Auto) (0-5) /HPF Urine RBC (Auto) (0-2) /HPF U Epithel Cells (Auto) (FEW) /HPF Urine Bacteria (Auto) (NEGATIVE) /HPF Urine Mucus (Auto) (NEGATIVE) /HPF Urine Culture Reflexed (NO) Urine Glucose (NEGATIVE) mg/dL 09/19/19 09/19/19 Range/Units 22:37 22:18 WBC (4.0-10.5) K/mm3 RBC (4.1-5.4) M/mm3 Hgb (12.0-16.0) gm/dl Hct (35-47) % MCV (78-100) fl MCH (26-32) pg MCHC (32-36) g/dl RDW (11.5-14.0) % Plt Count (150-450) K/mm3 MPV (7.5-11.0) fl Gran % (36.0-66.0) % Eos # (Auto) (0-0.5) Absolute Lymphs (auto) (1.0-4.6) Absolute Monos (auto) (0.0-1.3) Lymphocytes % (24.0-44.0) % Monocytes % (0.0-12.0) % Eosinophils % (0.00-5.0) % Basophils % (0.0-0.4) % Absolute Granulocytes (1.4-6.9) Basophils # (0-0.4) Sodium (137-145) mmol/L Potassium (3.5-5.1) mmol/L Chloride (98-107) mmol/L Carbon Dioxide (22-30) mmol/L Anion Gap (5-15) MEQ/L BUN (7-17) mg/dL Creatinine (0.52-1.04) mg/dL Estimated GFR ML/MIN Glucose (74-106) mg/dL Lactic Acid 1.5 (0.4-2.0) Calcium (8.4-10.2) mg/dL Total Bilirubin (0.2-1.3) mg/dL AST (14-36) U/L ALT (0-35) U/L Alkaline Phosphatase (38-126) U/L Troponin I (0.000-0.034) ng/mL Serum Total Protein (6.3-8.2) g/dL Albumin (3.5-5.0) g/dL Amylase (30-110) U/L Lipase (23-300) U/L Urine Color YELLOW (YELLOW) Urine Appearance CLOUDY (CLEAR) Urine pH 5.0 (5-6) Ur Specific [place] 1.018 (1.005-1.025) Urine Protein NEGATIVE (Negative) Urine Ketones NEGATIVE (NEGATIVE) Urine Blood NEGATIVE (0-5) Alfredito/ul Urine Nitrite NEGATIVE (NEGATIVE) Urine Bilirubin NEGATIVE (NEGATIVE) Urine Urobilinogen NEGATIVE (0-1) mg/dL Ur Leukocyte Esterase LARGE (NEGATIVE) Urine WBC (Auto) >100 (0-5) /HPF Urine RBC (Auto) NONE (0-2) /HPF U Epithel Cells (Auto) RARE (FEW) /HPF Urine Bacteria (Auto) RARE (NEGATIVE) /HPF Urine Mucus (Auto) SLIGHT (NEGATIVE) /HPF Urine Culture Reflexed YES (NO) Urine Glucose NEGATIVE (NEGATIVE) mg/dL - Progress Progress: improved, re-examined Progress Note: 09/20/19 00:21 pain improved after meds - discussed with pt and family that we have not determined fili cause for her pain and that undetected pathology may still be evolving including serious problesm- she prefers DC with outpt f/u rather than further w/u in ER at this time or admission and has the capacity to make that choice; Counseled pt/family regarding: lab results, diagnosis, need for follow-up, rad results - Departure Departure Disposition: Home Clinical Impression: Abdominal pain of unknown cause, UTI (urinary tract infection), Gastroparesis, Lung nodule, Hypokalemia Condition: Good Critical Care Time: No Referrals: MAXIMILIANO BONNER MD [Primary Care Provider] - Instructions: Urinary Tract Infections in Adults, Hypokalemia (DC), Acute Abdomen (Belly Pain), Adult (DC), Gastroparesis (Delayed Gastric Emptying) (DC) , Pulmonary Nodule Additional Instructions: We have not determined the cause for your abdominal pain and therefore further evaluation by your Dr is indicated; we are including info on gastroparesis which you have been told you also have , urinary tract which we found with infection and low potassium . THere may be problems still evolving not seen by the CT scan. followup with your dr for your UTI , potassium, lung nodule , and abdominal pain and gastroparesis, and return meantime if any concerns ; Prescriptions: Cephalexin Mh 500 mg [Keflex 500 mg] 500 mg PO TIDAC #30 capsule
[2019-09-19] MEDS ORDERED: Zofran 4 MG/2 ML VIAL ONE (22:42)
[2019-09-19] MEDS ORDERED: Hydromorphone 1 mg/ml Ampule ONE (22:42)
[2019-09-19] MEDS ORDERED: Sodium Chloride 0.9% 1000 ML 1,000 ML ONE (22:42)
[2019-09-19 22:43] LABS: BASOPHIL % 0.4 % (0.0-0.4); Basophil (Absolute #) 0.03 (0-0.4); Eosinophil (Absolute #) 0.07 (0-0.5); Hematocrit 40.8 % (35-47); Hemoglobin 13.4 gm/dl (12.0-16.0); Lymphocyte (Absolute #) 2.88 (1.0-4.6); Lymphocytes % 39.2 % (24.0-44.0); Mean Cell Volume 92.9 fl (78-100); Mean Corpuscular Hemoglobin 30.5 pg (26-32); Mean Corpuscular Hgb Concent. 32.8 g/dl (32-36); Mean Platelet Volume 9.5 fl (7.5-11.0); Monocyte (Absolute #) 0.57 (0.0-1.3); Monocytes % 7.8 % (0.0-12.0); Neutrophil % 51.6 % (36.0-66.0); Platelet Count 293 K/mm3 (150-450); Red Blood Count 4.39 M/mm3 (4.1-5.4); White Blood Count 7.4 K/mm3 (4.0-10.5)
[2019-09-19 22:45] LABS: Appearance CLOUDY (CLEAR); Bacteria RARE /HPF (NEGATIVE); Bilirubin NEGATIVE (NEGATIVE); Blood NEGATIVE Ery/ul (0-5); Epithelial Cells RARE /HPF (FEW); Glucose NEGATIVE (NEGATIVE); Ketones NEGATIVE (NEGATIVE); Leukocyte Esterase LARGE (NEGATIVE); Mucus SLIGHT /HPF (NEGATIVE); Nitrite NEGATIVE (NEGATIVE); Protein,Urine Dip NEGATIVE (Negative); Specific Gravity 1.018 (1.005-1.025); Urobilinogen NEGATIVE mg/dL (0-1); WBC >100 /HPF (0-5)
[2019-09-19 23:01] LABS: ALBUMIN 4.2 g/dL (3.5-5.0); ALKALINE PHOSPHATASE 103 U/L (38-126); AMYLASE 65 U/L (30-110); BLOOD UREA NITROGEN 17 mg/dL (7-17); CHLORIDE 105 mmol/L (98-107); Calcium 9.4 mg/dL (8.4-10.2); Carbon Dioxide 25 mmol/L (22-30); Creatinine 1 0.77 mg/dL (0.52-1.04); Glucose 116 mg/dL (74-106); LIPASE 117 U/L (23-300); Potassium 3.3 mmol/L (3.5-5.1); SGOT/AST 26 U/L (14-36); SGPT/ALT 21 U/L (0-35); SODIUM 140 mmol/L (137-145); Total Protein 7.8 g/dL (6.3-8.2)
[2019-09-19] MEDS ORDERED: ROCEPHIN 1 Gm-D5w 50 ml Bag** 1 G/50 ML IVPB IV STA (23:06)
[2019-09-19] MEDS ORDERED: ROCEPHIN 1 Gm-D5w 50 ml Bag** 1 G/50 ML IVPB IV ONE (23:10)
[2019-09-20 00:22] VITALS: PULSE 51
[2019-09-20] MEDS ORDERED: Klor Con 10 MEQ PO ONE ×2 (00:31→00:36)
[2019-09-20] MEDS ORDERED: MAALOX ES 30 ML UNIT DOSE PO ONE (00:32)
[2019-09-20] MEDS ORDERED: Hydromorphone 1 mg/ml Ampule IV ONE (00:32)
[2019-09-20] MEDS ORDERED: MAALOX ES 30 ML UNIT DOSE ONE (00:37)
[2019-09-20] MEDS ORDERED: Hydromorphone 1 mg/ml Ampule ONE (00:37)
[2019-09-20 00:53] VITALS: BP 96/63; O2SAT 99
--- NOTE | 2019-09-20 08:23 | XRAY ---
Indication: Abdomen pain. History of GERD. Multiple contiguous axial images obtained through the abdomen and pelvis without contrast as ordered. Comparison: January 08, 2017. Lung bases hyperinflated without infiltrate or effusion. Heart is not enlarged. Noncontrasted stomach and bowel loops appear nonobstructed. Normal appendix. Previous reported hysterectomy and cholecystectomy. No free fluid/air. Mid abdomen now demonstrate tiny mesenteric nodes with minimal stranding favoring adenitis. Remaining liver, pancreas, spleen, adrenal glands, kidneys, ureters, bladder, and aorta appear unremarkable for noncontrast exam. Osseous structures again demonstrates mild degenerative changes throughout the spine. No ventral or inguinal hernias. Impression: 1. Tiny mid abdomen mesenteric nodes with stranding favor mesenteric adenitis. 2. Remaining CT abdomen/pelvis without contrast exam is negative. Comment: Preliminary interpretation was made by [facility]. No critical discrepancy.
== END 2019-09-20 01:31 | disposition home or self-care (01) ==
LOC: ED 21:50
DX: R10.31 Right lower quadrant pain (principal); R10.11 Right upper quadrant pain; R10.13 Epigastric pain; N39.0 Urinary tract infection, site not specified; K31.84 Gastroparesis; R91.1 Solitary pulmonary nodule; E87.6 Hypokalemia; R11.0 Nausea; Z79.899 Other long term (current) drug therapy; E78.00 Pure hypercholesterolemia, unspecified; I10 Essential (primary) hypertension
CPT/HCPCS: 36000; 36415; 74176; 80053; 81001; 82150; 83605; 83690; 84484; 85025; 87086; 93005; 96360; 96365; 96374; 96375; 96376; 99285; J0696; J1170; J2405; A9270-GY

== ENCOUNTER 2020-03-07 20:33 | Emergency (ER) | payer MEDICARE ==
--- NOTE | 2020-03-07 20:37 | ERPHSYRPT ---
- History of Present Illness Time Seen by Provider: 03/07/20 20:37 Source: patient Exam Limitations: no limitations Physician History: 64-year-old white female who presents with back pain for approximately 2 days. Patient did not fall or have any trauma to her back. However she states that she did change the bedding on her bed and the next day she was having signific ant pain. Patient has had a MRI of her lumbar spine scheduled for 03/09/2020. Patient took 2 of her Xanax prior to evaluation here in the emergency department. Patient has a history of hypertension, gastroesophageal reflux disease and elevated cholesterol. Patient's primary care physician is Dr. Tiara maloney Timing/Duration: day(s) (2) Method of Injury: other (No trauma or injury) Back Pain Location: lumbar spine Severity of Pain-Max: moderate Severity of Pain-Current: moderate Modifying Factors: Improves With: movement Associated Symptoms: denies symptoms, lower back pain, No numbness in legs/feet, No sensory/motor loss, No tingling in legs/feet Previous symptoms: same symptoms as today Allergies/Adverse Reactions: bupropion HCl [From Wellbutrin] Allergy (Verified 09/19/19 22:13) metoclopramide Adverse Reaction (Verified 09/19/19 22:13) Home Medications: Bisoprolol/Hydrochlorothiazide [Ziac 10-6.25 mg Tablet] 1 each PO DAILY 11/27/15 [History] Omeprazole [Prilosec] 40 mg PO DAILY 11/27/15 [History] Simvastatin 20 mg PO DAILY 11/27/15 [History] Alprazolam [Xanax] 0.5 mg PO BID PRN 09/19/19 [History] Aspirin EC 81 mg [Ecotrin 81 mg] 81 mg PO DAILY 09/19/19 [History] Hx Tetanus, Diphtheria Vaccination/Date Given: Yes (unknown) Hx Influenza Vaccination/Date Given: No Hx Pneumococcal Vaccination/Date Given: No Travel Risk - International Travel Have you traveled outside of the country in past 3 weeks: No - Coronavirus Screening Are you exhibiting any of the following symptoms?: No Close contact with a COVID-19 positive Pt in past 14-21 Days: No - Review of Systems Constitutional: No Symptoms Eyes: No Symptoms Ears, Nose, & Throat: No Symptoms Respiratory: No Symptoms Cardiac: No Symptoms Abdominal/Gastrointestinal: No Symptoms Genitourinary Symptoms: No Symptoms Musculoskeletal: Back Pain Skin: No Symptoms Neurological: No Symptoms Psychological: No Symptoms Endocrine: No Symptoms Hematologic/Lymphatic: No Symptoms Immunological/Allergic: No Symptoms All Other Systems: Reviewed and Negative - Past Medical History Pertinent Past Medical History: Yes Neurological History: No Pertinent History ENT History: No Pertinent History Cardiac History: High Cholesterol, Hypertension Respiratory History: No Pertinent History Endocrine Medical History: No Pertinent History Musculoskeletal History: No Pertinent History GI Medical History: GERD, Hernia History: No Pertinent History Psycho-Social History: Depression Female Reproductive Disorders: No Pertinent History Other Medical History: gastroparesis. scheduled with neurologist for abnormal head ct, weakness on rt side - Past Surgical History Past Surgical History: Yes Neuro Surgical History: No Pertinent History Cardiac: No Pertinent History Respiratory: No Pertinent History Gastrointestinal: Cholecystectomy Genitourinary: No Pertinent History Musculoskeletal: No Pertinent History Female Surgical History: Hysterectomy Other Surgical History: breast bx - Social History Smoking Status: Never smoker Exposure to second hand smoke: No Drug Use: none Patient Lives Alone: No - Nursing Vital Signs Nursing Vital Signs: Initial Vital Signs Temperature 98.4 F 03/07/20 20:57 Pulse Rate 82 03/07/20 20:57 Respiratory Rate 18 03/07/20 20:57 Blood Pressure 98/64 03/07/20 20:57 O2 Sat by Pulse Oximetry 95 03/07/20 20:57 Pain Scale Pain Intensity [Back] 8 Pain Intensity 8 - Physical Exam General Appearance: no apparent distress, alert, anxiety, obese Eye Exam: PERRL/EOMI, eyes nml inspection Ears, Nose, Throat Exam: normal ENT inspection, moist mucous membranes Neck Exam: normal inspection, non-tender, supple, full range of motion Respiratory Exam: normal breath sounds, lungs clear, airway intact, No chest tenderness, No respiratory distress Cardiovascular Exam: regular rate/rhythm, normal heart sounds, normal peripheral pulses Gastrointestinal Exam: soft, normal bowel sounds, No tenderness Pelvic Exam: not done Rectal Exam: not done Back Exam: normal inspection, decreased range of motion, muscle spasm, No CVA tenderness, No vertebral tenderness Extremity Exam: normal inspection, normal range of motion, pelvis stable Neurologic Exam: alert, oriented x 3, cooperative, 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 tested, normal mood/affect Skin Exam: normal color, warm, dry Lymphatic Exam: No adenopathy SpO2 Interpretation: normal O2 Delivery: Room Air - Course Nursing assessment & vital signs reviewed: Yes Ordered Tests: Active Orders 24 hr Category Date Time Status IV Insertion STAT Care 03/07/20 21:23 Active ABDOMEN AND PELVIS W/0 CONTRAS [CT] Stat Exams 03/07/20 22:16 Taken BMP Stat Lab 03/07/20 21:41 Completed CBC W DIFF Stat Lab 03/07/20 21:41 Completed Medication Summary Discontinued Medications Generic Name Dose Route Start Last Admin Trade Name Frida PRN Reason Stop Dose Admin Hydromorphone HCl 0.5 mg 03/07/20 22:13 03/07/20 22:56 Hydromorphone 1 Mg/Ml Ampule IV 03/07/20 22:14 0.5 mg STAT ONE Administration Hydromorphone HCl Confirm 03/07/20 22:52 Hydromorphone 1 Mg/Ml Ampule Administered 03/07/20 22:53 Dose 1 mg .ROUTE .STK-MED ONE Sodium Chloride 500 mls @ 500 mls/hr 03/07/20 21:24 03/07/20 22:56 Sodium Chloride 0.9% 500 Ml IV 03/07/20 22:23 Infused .Q1H ONE Infusion Sodium Chloride Confirm 03/07/20 21:38 Sodium Chloride 0.9% 500 Ml Administered 03/07/20 21:39 Dose 500 mls @ ud IV .STK-MED ONE Methylprednisolone Sodium Succinate 125 mg 03/07/20 21:26 03/07/20 21:40 Solu-Medrol 125 Mg IV 03/07/20 21:27 125 mg STAT ONE Administration Methylprednisolone Sodium Succinate Confirm 03/07/20 21:38 Solu-Medrol 125 Mg Administered 03/07/20 21:39 Dose 125 mg .ROUTE .STK-MED ONE Ondansetron HCl 4 mg 03/07/20 22:13 03/07/20 22:56 Zofran 4 Mg/2 Ml Vial IV 03/07/20 22:14 4 mg STAT ONE Administration Ondansetron HCl Confirm 03/07/20 22:51 Zofran 4 Mg/2 Ml Vial Administered 03/07/20 22:52 Dose 4 mg .ROUTE .STK-MED ONE Lab/Rad Data: Laboratory Result Diagrams 03/07/20 21:41 03/07/20 21:41 Laboratory Results 03/07/20 03/07/20 Range/Units 21:41 21:41 WBC 9.4 (4.0-10.5) K/mm3 RBC 4.42 (4.1-5.4) M/mm3 Hgb 13.5 (12.0-16.0) gm/dl Hct 42.3 (35-47) % MCV 95.7 (78-100) fl MCH 30.5 (26-32) pg MCHC 31.9 L (32-36) g/dl RDW 14.2 H (11.5-14.0) % Plt Count 286 (150-450) K/mm3 MPV 9.7 (7.5-11.0) fl Gran % 65.2 (36.0-66.0) % Eos # (Auto) 0.25 (0-0.5) Absolute Lymphs (auto) 2.39 (1.0-4.6) Absolute Monos (auto) 0.58 (0.0-1.3) Lymphocytes % 25.4 (24.0-44.0) % Monocytes % 6.2 (0.0-12.0) % Eosinophils % 2.7 (0.00-5.0) % Basophils % 0.5 (0.0-0.4) % Absolute Granulocytes 6.15 (1.4-6.9) Basophils # 0.05 (0-0.4) Sodium 139 (137-145) mmol/L Potassium 4.2 (3.5-5.1) mmol/L Chloride 106 (98-107) mmol/L Carbon Dioxide 27 (22-30) mmol/L Anion Gap 10.3 (5-15) MEQ/L BUN 16 (7-17) mg/dL Creatinine 0.82 (0.52-1.04) mg/dL Estimated GFR > 60.0 ML/MIN Glucose 113 H (74-106) mg/dL Calcium 9.4 (8.4-10.2) mg/dL - Progress Progress: improved, pain not gone completely, re-examined Progress Note: 03/07/20 23:15 CAT scan of the abdomen and pelvis reveals severe bilateral L5-S1 facet degenerative changes. There are no acute intra-abdominal abnormalities. Counseled pt/family regarding: lab results, diagnosis, need for follow-up, rad results - Departure Departure Disposition: Home Clinical Impression: Acute exacerbation of chronic low back pain Condition: Stable Critical Care Time: No Referrals: MAXIMILIANO BONNER MD [Primary Care Provider] - Additional Instructions: Take medication as prescribed. Hold your blood pressure medicine until you discuss with tomorrow morning. Keep your MRI appointment scheduled for 03/09/2020. Follow-up with your primary care doctor for possible referral to a pain specialist or for management of your chronic back pain. Prescriptions: Hydrocodone/APAP 5-325 Tab^^^ [[place] 5-325 Tablet^^^] 1 tab PO Q12H PRN PRN #5 tablet MDD 2 PRN Reason: Pain Prednisone 10 mg [Deltasone 10 mg] 10 mg PO TID #12 tablet
[2020-03-07] MEDS ORDERED: Sodium Chloride 0.9% 500 ML 500 ML IV ONE ×2 (21:24→21:38)
[2020-03-07] MEDS ORDERED: solu-MEDROL 125 MG IV ONE (21:26)
[2020-03-07] MEDS ORDERED: solu-MEDROL 125 MG ONE (21:38)
[2020-03-07 21:45] LABS: Absolute Neutrophil Ct (ANC) 6.15 (1.4-6.9); BASOPHIL % 0.5 % (0.0-0.4); Basophil (Absolute #) 0.05 (0-0.4); Eosinophil % 2.7 % (0.00-5.0); Eosinophil (Absolute #) 0.25 (0-0.5); Hematocrit 42.3 % (35-47); Hemoglobin 13.5 gm/dl (12.0-16.0); Lymphocyte (Absolute #) 2.39 (1.0-4.6); Lymphocytes % 25.4 % (24.0-44.0); Mean Cell Volume 95.7 fl (78-100); Mean Corpuscular Hemoglobin 30.5 pg (26-32); Mean Corpuscular Hgb Concent. 31.9 g/dl (32-36); Mean Platelet Volume 9.7 fl (7.5-11.0); Monocyte (Absolute #) 0.58 (0.0-1.3); Monocytes % 6.2 % (0.0-12.0); Neutrophil % 65.2 % (36.0-66.0); Platelet Count 286 K/mm3 (150-450); Red Blood Count 4.42 M/mm3 (4.1-5.4); Red Cell Distribution Width 14.2 % (11.5-14.0); White Blood Count 9.4 K/mm3 (4.0-10.5)
[2020-03-07 22:02] LABS: ANION GAP 10.3 MEQ/L (5-15); BLOOD UREA NITROGEN 16 mg/dL (7-17); CHLORIDE 106 mmol/L (98-107); Calcium 9.4 mg/dL (8.4-10.2); Carbon Dioxide 27 mmol/L (22-30); Creatinine 1 0.82 mg/dL (0.52-1.04); EST GLOMERULAR FILTRATION RATE > 60.0 ML/MIN; Glucose 113 mg/dL (74-106); Potassium 4.2 mmol/L (3.5-5.1); SODIUM 139 mmol/L (137-145)
[2020-03-07] MEDS ORDERED: Hydromorphone 1 mg/ml Ampule IV ONE (22:13)
[2020-03-07] MEDS ORDERED: Zofran 4 MG/2 ML VIAL IV ONE (22:13)
[2020-03-07] MEDS ORDERED: Zofran 4 MG/2 ML VIAL ONE (22:51)
[2020-03-07] MEDS ORDERED: Hydromorphone 1 mg/ml Ampule ONE (22:52)
[2020-03-08 00:01] VITALS: BP 101/64; PULSE 64; O2SAT 97
--- NOTE | 2020-03-08 08:57 | XRAY ---
Indication: Low back pain. Multiple contiguous axial images obtained through the abdomen and pelvis without contrast as ordered. Comparison: September 19, 2019. Lung bases remain hyperinflated with now minimal dependent atelectasis. No infiltrate or effusion. Heart is not enlarged. New small hiatal hernia. Noncontrasted stomach and bowel loops nonobstructed. Normal appendix. No free fluid/air. There is now mild diffuse scattered colonic fecal debris throughout. Again hysterectomy and cholecystectomy. No free fluid/air. Remaining liver, pancreas, spleen, adrenal glands, kidneys, ureters, bladder, and aorta appear unremarkable for noncontrast exam. Osseous structures intact again with mild degenerative changes throughout the spine. New central L1 superior endplate fracture with approximately 25% height loss appearing slightly sclerotic suggesting subacute/chronic fracture without spinal canal or foraminal encroachment. Impression: 1. New subacute/chronic-appearing L1 endplate fracture as detailed. 2. New mild diffuse fecal stasis and small hiatal hernia. Comment: Preliminary interpretation was made by [facility] who does not report new hiatal hernia and new L1 fracture. Telephone report given to Dr. Brar at 0855 hours on March 08, 2020.
== END 2020-03-07 23:50 | disposition home or self-care (01) ==
LOC: ED 20:33
DX: S32.019A Unspecified fracture of first lumbar vertebra, initial encounter for closed fracture (principal); M54.5 Low back pain; G89.29 Other chronic pain; F45.42 Pain disorder with related psychological factors; I10 Essential (primary) hypertension; K21.9 Gastro-esophageal reflux disease without esophagitis; E78.00 Pure hypercholesterolemia, unspecified; K44.9 Diaphragmatic hernia without obstruction or gangrene
CPT/HCPCS: 36000; 36415; 74176; 80048; 85025; 96374; 96375; 99284; J1170; J2405; J2930

== ENCOUNTER 2020-04-13 11:14 | Day surgery (SDC) | payer MEDICARE ==
[~2020-04-13 11:14] MED LIST: DIPRIVAN 200 MG/20 ML IV ONE; Ketamine HCl 50 MG/ML ONE
[2020-04-13] MEDS ORDERED: Depo-Medrol 40 MG/ML IM ONE (11:15)
[2020-04-13] MEDS ORDERED: Sodium Chloride 0.9(Preservative Free) 10 ML IJ ONE (11:15)
[2020-04-13] MEDS ORDERED: Xylocaine 1% Vial 30 ML PF IJ ONE (11:15)
[2020-04-13] MEDS ORDERED: Lactated Ringers 1,000 ML IV ONE (13:45)
--- NOTE | 2020-04-13 14:19 | XRAY ---
16 seconds fluoroscopy time in surgery for lumbar VELIA.
--- NOTE | 2020-04-13 14:27 | XRAY ---
Indication: Lumbar VELIA. Intraoperative fluoroscopy provided for 16 seconds. 2 digital spot images submitted for interpretation demonstrates posterior midline needle tip projecting just posterior to the lumbosacral interspace. Small amount of contrast injected for needle tip placement. Correlate with intraoperative findings/report.
== END 2020-04-13 13:46 | disposition home or self-care (01) ==
LOC: SDC-PAIN 11:14
PROVIDERS: ATTEND Psychiatry & Neurology Pain Medicine
DX: M54.16 Radiculopathy, lumbar region (principal); I10 Essential (primary) hypertension; E78.5 Hyperlipidemia, unspecified; K21.9 Gastro-esophageal reflux disease without esophagitis; F41.8 Other specified anxiety disorders; Z79.899 Other long term (current) drug therapy
CPT/HCPCS: 72100; 77003; J1030; J2001; J2704

== ENCOUNTER 2020-08-31 13:01 | Day surgery (SDC) | payer MEDICARE | END 2020-08-31 13:30 | disposition home or self-care (01) | LOC: SDC 13:01 → SDC-PAIN 13:01 → SDC 13:30 | PROVIDERS: ATTEND Psychiatry & Neurology Pain Medicine | DX: Z53.09 Procedure and treatment not carried out because of other contraindication (principal); R60.9 Edema, unspecified ==

== ENCOUNTER 2020-08-31 13:36 | Emergency (ER) | payer MEDICARE ==
--- NOTE | 2020-08-31 13:39 | ERPHSYRPT ---
- History of Present Illness Time Seen by Provider: 08/31/20 13:39 Source: patient Exam Limitations: no limitations Physician History: This is a 64-year-old white female who went to her pain specialist for back injection. Because of the presence of right foot cellulitis and swelling patient did not undergo the back injection. Patient was sent to the emergency department because her primary care doctor is not in the office today. She is here because of the right foot swelling and redness. She has had no fevers. She has had no shortness of breath. She does not complain of any significant right foot pain. Patient has no shortness of breath and she has no chest pain. Timing/Duration: yesterday Severity: mild Associated Symptoms: denies symptoms Allergies/Adverse Reactions: bupropion HCl [From Wellbutrin] Allergy (Verified 08/31/20 13:50) metoclopramide Adverse Reaction (Verified 08/31/20 13:50) Home Medications: Bisoprolol/Hydrochlorothiazide [Ziac 10-6.25 mg Tablet] 1 each PO DAILY 11/27/15 [History] Omeprazole [Prilosec] 40 mg PO DAILY 11/27/15 [History] Simvastatin 20 mg PO DAILY 11/27/15 [History] Alprazolam [Xanax] 0.5 mg PO BID PRN 09/19/19 [History] Aspirin EC 81 mg [Ecotrin 81 mg] 81 mg PO DAILY 09/19/19 [History] Gabapentin [Neurontin] 300 mg PO DAILY 08/31/20 [History] Potassium Chloride 10 Meq Tab* [Klor Con 10 MEQ] 10 meq PO DAILY 08/31/20 [History] Hx Tetanus, Diphtheria Vaccination/Date Given: Yes (unknown) Hx Influenza Vaccination/Date Given: No Hx Pneumococcal Vaccination/Date Given: No Travel Risk - International Travel Have you traveled outside of the country in past 3 weeks: No - Coronavirus Screening Are you exhibiting any of the following symptoms?: No Close contact with a COVID-19 positive Pt in past 14-21 Days: No - Review of Systems Constitutional: No Symptoms Eyes: No Symptoms Ears, Nose, & Throat: No Symptoms Respiratory: No Symptoms Cardiac: No Symptoms Abdominal/Gastrointestinal: No Symptoms Genitourinary Symptoms: No Symptoms Musculoskeletal: No Symptoms Skin: Cellulitis (Right foot dorsal aspect swelling and redness and warmth) Neurological: No Symptoms Psychological: No Symptoms Endocrine: No Symptoms Hematologic/Lymphatic: No Symptoms Immunological/Allergic: No Symptoms All Other Systems: Reviewed and Negative - Past Medical History Pertinent Past Medical History: Yes Neurological History: No Pertinent History ENT History: No Pertinent History Cardiac History: High Cholesterol, Hypertension Respiratory History: No Pertinent History Endocrine Medical History: No Pertinent History Musculoskeletal History: No Pertinent History GI Medical History: GERD, Hernia History: No Pertinent History Psycho-Social History: Depression Female Reproductive Disorders: No Pertinent History Other Medical History: gastroparesis. scheduled with neurologist for abnormal head ct, weakness on rt side - Past Surgical History Past Surgical History: Yes Neuro Surgical History: No Pertinent History Cardiac: No Pertinent History Respiratory: No Pertinent History Gastrointestinal: Cholecystectomy Genitourinary: No Pertinent History Musculoskeletal: No Pertinent History Female Surgical History: Hysterectomy Other Surgical History: breast bx - Social History Smoking Status: Never smoker Exposure to second hand smoke: No Drug Use: none Patient Lives Alone: No - Nursing Vital Signs Nursing Vital Signs: Initial Vital Signs Temperature 98.1 F 08/31/20 13:44 Pulse Rate 72 08/31/20 13:44 Blood Pressure 130/82 08/31/20 13:44 O2 Sat by Pulse Oximetry 96 08/31/20 13:44 Pain Scale Pain Intensity 8 - Physical Exam General Appearance: no apparent distress, alert, anxiety Eye Exam: PERRL/EOMI, eyes nml inspection Ears, Nose, Throat Exam: normal ENT inspection, moist mucous membranes Neck Exam: normal inspection, non-tender, supple, full range of motion Respiratory Exam: normal breath sounds, lungs clear, airway intact, No chest tenderness, No respiratory distress Cardiovascular Exam: regular rate/rhythm, normal heart sounds, normal peripheral pulses Gastrointestinal/Abdomen Exam: No tenderness Pelvic Exam: not done Rectal Exam: not done Back Exam: normal inspection, normal range of motion, CVA tenderness Extremity Exam: normal range of motion, pelvis stable, swelling (Dorsal aspect left foot), tenderness (Dorsal aspect left foot) Neurologic Exam: alert, oriented x 3, cooperative, 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 No evidence of abscess present. There is palpable pedal pulses present) Lymphatic Exam: No adenopathy SpO2 Interpretation: normal O2 Delivery: Room Air - Course Nursing assessment & vital signs reviewed: Yes Ordered Tests: Medication Summary Generic Name Dose Route Start Last Admin Trade Name Frida PRN Reason Stop Dose Admin Ceftriaxone Sodium 1,000 mg 08/31/20 14:18 Rocephin 1000 Mg Inj IM 08/31/20 14:19 STAT ONE Trimethoprim/Sulfamethoxazole 1 tab 08/31/20 14:18 Bactrim Ds Tablet PO 08/31/20 14:19 STAT ONE - Progress Progress: pain not gone completely, re-examined Counseled pt/family regarding: diagnosis, need for follow-up - Departure Departure Disposition: Home Clinical Impression: Cellulitis of left foot Condition: Stable Critical Care Time: No Referrals: MAXIMILIANO BONNER MD [Primary Care Provider] - Additional Instructions: Keep site clean. Apply unscented skin moisturizer/lotion to bilateral feet and lower extremities. Keep right lower extremity elevated above level of your heart to help resolve the swelling. Call your primary care doctor's office today to make arranges for follow-up appointment and reevaluation. Take your medications as prescribed Prescriptions: Smz/Tmp Ds Tablet [Bactrim Ds Tablet] 1 udtab PO BID #14 tablet
[2020-08-31] MEDS ORDERED: BACTRIM DS TABLET PO ONE ×2 (14:18→14:21)
[2020-08-31] MEDS ORDERED: Rocephin 1000 MG INJ IM ONE (14:18)
[2020-08-31] MEDS ORDERED: XYLOCAINE 1% HCL 20 ML MDV ONE (14:21)
[2020-08-31] MEDS ORDERED: Rocephin 1000 MG INJ ONE (14:21)
[2020-08-31 14:31] VITALS: BP 122/65; PULSE 64; O2SAT 97
== END 2020-08-31 14:38 | disposition home or self-care (01) ==
LOC: ED 13:36
DX: L03.116 Cellulitis of left lower limb (principal)
CPT/HCPCS: 96372; 99283; J0696; A9270-GY

== ENCOUNTER 2020-10-12 12:47 | Day surgery (SDC) | payer MEDICARE ==
[2020-10-12] MEDS ORDERED: Depo-Medrol 40 MG/ML IM ONE (12:48)
[2020-10-12] MEDS ORDERED: Sodium Chloride 0.9(Preservative Free) 10 ML IJ ONE (12:48)
[2020-10-12] MEDS ORDERED: Lactated Ringers 1,000 ML IV ONE (13:53)
[2020-10-12] MEDS ORDERED: DIPRIVAN 200 MG/20 ML IV ONE (14:23)
[2020-10-12] MEDS ORDERED: Ketamine HCl 50 MG/ML ONE (14:23)
[2020-10-12] MEDS ORDERED: BENADRYL 50 MG/ML ONE (14:48)
--- NOTE | 2020-10-12 16:26 | XRAY ---
Indication: Left L4-S1 transforaminal VELIA. Intraoperative fluoroscopy provided for 28 seconds. 4 digital spot images submitted for interpretation demonstrates posterior needle tips projecting over the expected left L4 and L5 nerve roots. Small amount of contrast injected for needle tip placement. Correlate with intraoperative findings/report.
--- NOTE | 2020-10-12 16:30 | XRAY ---
28 seconds fluoroscopy time in surgery for left L4-S1 transforaminal VELIA.
== END 2020-10-12 14:52 | disposition home or self-care (01) ==
LOC: SDC-PAIN 12:47
PROVIDERS: ATTEND Psychiatry & Neurology Pain Medicine
DX: M54.16 Radiculopathy, lumbar region (principal); I10 Essential (primary) hypertension; E78.5 Hyperlipidemia, unspecified; K21.9 Gastro-esophageal reflux disease without esophagitis; F41.8 Other specified anxiety disorders; Z79.899 Other long term (current) drug therapy
CPT/HCPCS: 64483; 64484; 72100; 77003; J1030; J1200; J2704; Q9966

== ENCOUNTER 2020-11-09 15:13 | Emergency (ER) | payer MEDICARE ==
[2020-11-09 15:58] LABS: Absolute Neutrophil Ct (ANC) 5.27 (1.4-6.9); BASOPHIL % 0.2 % (0.0-0.4); Basophil (Absolute #) 0.02 (0-0.4); Eosinophil % 1.3 % (0.00-5.0); Eosinophil (Absolute #) 0.11 (0-0.5); Hematocrit 44.5 % (35-47); Hemoglobin 14.2 gm/dl (12.0-16.0); Lymphocyte (Absolute #) 2.58 (1.0-4.6); Lymphocytes % 30.2 % (24.0-44.0); Mean Cell Volume 94.1 fl (78-100); Mean Corpuscular Hgb Concent. 31.9 g/dl (32-36); Mean Platelet Volume 9.6 fl (7.5-11.0); Monocyte (Absolute #) 0.55 (0.0-1.3); Monocytes % 6.4 % (0.0-12.0); Neutrophil % 61.9 % (36.0-66.0); Platelet Count 312 K/mm3 (150-450); Red Blood Count 4.73 M/mm3 (4.1-5.4); Red Cell Distribution Width 14.8 % (11.5-14.0); White Blood Count 8.5 K/mm3 (4.0-10.5)
[2020-11-09 16:05] LABS: ALBUMIN 4.4 g/dL (3.5-5.0); ALKALINE PHOSPHATASE 103 U/L (38-126); ANION GAP 14.1 MEQ/L (5-15); BLOOD UREA NITROGEN 17 mg/dL (7-17); CHLORIDE 105 mmol/L (98-107); Calcium 10.2 mg/dL (8.4-10.2); Carbon Dioxide 26 mmol/L (22-30); EST GLOMERULAR FILTRATION RATE > 60.0 ML/MIN; Glucose 123 mg/dL (74-106); LIPASE 104 U/L (23-300); Potassium 4.1 mmol/L (3.5-5.1); SGOT/AST 26 U/L (14-36); SGPT/ALT 27 U/L (0-35); SODIUM 140 mmol/L (137-145); Total Protein 7.7 g/dL (6.3-8.2)
--- NOTE | 2020-11-09 16:11 | ERPHSYRPT ---
- History of Present Illness Time Seen by Provider: 11/09/20 15:25 Historian: patient Exam Limitations: no limitations Patient Subjective Stated Complaint: pt here for chronic back pain and abd pain worse today, she has not anything for it, had injection october 12 Triage Nursing Assessment: pt alert, resp easy, face mask in place, skin w/d/p. pain under right breast that is normal for her and pain to entrie back that is normal for her, no injury. she was able to eat today Physician History: Patient is a 65-year-old female presents to our ED with complaints of acute on chronic epigastric right upper quadrant pain. Patient states pain became significant today. She has a history of cholecystectomy done in the 80s. There is an obvious well-healed cholecystectomy scar on her right upper quadrant. Pain described as an ache. No specific worsening or improving factors. Patient denies trauma. No chest pain or shortness of breath no nausea vomiting or diaphoresis. Symptoms are moderate in intensity. Palpation reproduces symptoms. Patient voices no other complaints or concerns at this time. Timing/Duration: today Activities at Onset: none Quality: aching Abdominal Pain Onset Location: RUQ, epigastric Pain Radiation: no radiation Severity of Pain-Max: moderate Severity of Pain-Current: mild Modifying Factors: Improves With: nothing Associated Symptoms: denies symptoms Previous symptoms: same symptoms as today (Same symptoms just today but somewhat more intense.) Allergies/Adverse Reactions: bupropion HCl [From Wellbutrin] Allergy (Verified 11/09/20 15:24) metoclopramide Adverse Reaction (Verified 11/09/20 15:24) Home Medications: Bisoprolol/Hydrochlorothiazide [Ziac 10-6.25 mg Tablet] 1 each PO DAILY 11/27/15 [History] Omeprazole [Prilosec] 40 mg PO DAILY 11/27/15 [History] Simvastatin 20 mg PO DAILY 11/27/15 [History] Alprazolam [Xanax] 0.5 mg PO BID PRN 09/19/19 [History] Aspirin EC 81 mg [Ecotrin 81 mg] 81 mg PO DAILY 09/19/19 [History] Gabapentin [Neurontin] 300 mg PO DAILY 08/31/20 [History] Potassium Chloride 10 Meq Tab* [Klor Con 10 MEQ] 10 meq PO DAILY 08/31/20 [History] Hx Tetanus, Diphtheria Vaccination/Date Given: Yes (unknown) Hx Influenza Vaccination/Date Given: Yes Hx Pneumococcal Vaccination/Date Given: Yes Immunizations Up to Date: Yes Travel Risk - International Travel Have you traveled outside of the country in past 3 weeks: No - Coronavirus Screening Are you exhibiting any of the following symptoms?: No - Vaccine Status Have you recieved a Covid-19 vaccination: Yes 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[place] - Vaccination Dates Date of 2cond Vaccination (if applicable): september - Review of Systems Constitutional: No Symptoms Eyes: No Symptoms Ears, Nose, & Throat: No Symptoms Respiratory: No Symptoms, No Cough, No Dyspnea Cardiac: No Symptoms, No Chest Pain, No Edema, No Syncope Abdominal/Gastrointestinal: No Symptoms, No Abdominal Pain, No Nausea, No Vomiting, No Diarrhea Genitourinary Symptoms: No Symptoms, No Dysuria Musculoskeletal: No Symptoms, No Back Pain, No Neck Pain Skin: No Symptoms, No Rash Neurological: No Symptoms, No Dizziness, No Focal Weakness, No Sensory Changes Psychological: No Symptoms Endocrine: No Symptoms Hematologic/Lymphatic: No Symptoms Immunological/Allergic: No Symptoms All Other Systems: Reviewed and Negative - Past Medical History Pertinent Past Medical History: Yes Neurological History: No Pertinent History ENT History: No Pertinent History Cardiac History: High Cholesterol, Hypertension Respiratory History: No Pertinent History Endocrine Medical History: No Pertinent History Musculoskeletal History: No Pertinent History GI Medical History: GERD, Hernia History: No Pertinent History Psycho-Social History: Depression Female Reproductive Disorders: No Pertinent History Other Medical History: gastroparesis. scheduled with neurologist for abnormal head ct, weakness on left side - Past Surgical History Past Surgical History: Yes Neuro Surgical History: No Pertinent History Cardiac: No Pertinent History Respiratory: No Pertinent History Gastrointestinal: Cholecystectomy Genitourinary: No Pertinent History Musculoskeletal: No Pertinent History Female Surgical History: Hysterectomy Other Surgical History: breast bx - Social History Smoking Status: Never smoker Exposure to second hand smoke: No Drug Use: none Patient Lives Alone: Yes - Female History Hx Last Menstrual Period: post Hx Now: No - Nursing Vital Signs Nursing Vital Signs: Initial Vital Signs Temperature 98.2 F 11/09/20 15:25 Pulse Rate 87 11/09/20 15:25 Respiratory Rate 18 11/09/20 15:25 Blood Pressure 122/83 11/09/20 15:25 O2 Sat by Pulse Oximetry 96 11/09/20 15:25 Pain Scale Pain Intensity 8 - Physical Exam General Appearance: no apparent distress, alert Eye Exam: PERRL/EOMI, eyes nml inspection Ears, Nose, Throat Exam: normal ENT inspection, pharynx normal, moist mucous membranes Neck Exam: normal inspection, non-tender, supple, full range of motion Respiratory Exam: normal breath sounds, lungs clear, No respiratory distress Cardiovascular Exam: regular rate/rhythm, normal heart sounds Gastrointestinal/Abdomen Exam: soft, No tenderness, No mass Back Exam: normal inspection, normal range of motion, No CVA tenderness, No vertebral tenderness Extremity Exam: normal inspection, normal range of motion, pelvis stable Neurologic Exam: alert, oriented x 3, cooperative, normal mood/affect, sensation nml, No motor deficits Skin Exam: normal color, warm, dry Lymphatic Exam: adenopathy SpO2 Interpretation: normal SpO2: 96 O2 Delivery: Room Air - Course Nursing assessment & vital signs reviewed: Yes Ordered Tests: Active Orders 24 hr Category Date Time Status EKG-ER Only STAT Care 11/09/20 15:48 Active IV Insertion STAT Care 11/09/20 15:48 Active ABDOMEN AND PELVIS W CONTRAST [CT] Stat Exams 11/09/20 15:48 Completed CBC W DIFF Stat Lab 11/09/20 15:50 Completed CMP Stat Lab 11/09/20 15:50 Completed LIPASE Stat Lab 11/09/20 15:50 Completed TROPONIN Q3H Lab 11/09/20 15:50 Completed TROPONIN Q3H Lab 11/09/20 19:00 Ordered TROPONIN Q3H Lab 11/09/20 22:00 Ordered TROPONIN Q3H Lab 11/10/20 01:00 Ordered TROPONIN Q3H Lab 11/10/20 04:00 Ordered UA W/RFX UR CULTURE Stat Lab 11/09/20 16:57 Completed Medication Summary Discontinued Medications Generic Name Dose Route Start Last Admin Trade Name Freq PRN Reason Stop Dose Admin Dexamethasone Sodium Phosphate 8 mg 11/09/20 18:25 Decadron 4 Mg Inj IV 11/09/20 18:26 STAT ONE Ketorolac Tromethamine 30 mg 11/09/20 18:26 Toradol 30 Mg Injection IM 11/09/20 18:27 STAT ONE Lab/Rad Data: Laboratory Result Diagrams 11/09/20 15:50 11/09/20 15:50 Laboratory Results 11/09/20 11/09/20 11/09/20 Range/Units 16:57 15:50 15:50 WBC (4.0-10.5) K/mm3 RBC (4.1-5.4) M/mm3 Hgb (12.0-16.0) gm/dl Hct (35-47) % MCV (78-100) fl MCH (26-32) pg MCHC (32-36) g/dl RDW (11.5-14.0) % Plt Count (150-450) K/mm3 MPV (7.5-11.0) fl Gran % (36.0-66.0) % Eos # (Auto) (0-0.5) Absolute Lymphs (auto) (1.0-4.6) Absolute Monos (auto) (0.0-1.3) Lymphocytes % (24.0-44.0) % Monocytes % (0.0-12.0) % Eosinophils % (0.00-5.0) % Basophils % (0.0-0.4) % Absolute Granulocytes (1.4-6.9) Basophils # (0-0.4) Sodium 140 (137-145) mmol/L Potassium 4.1 (3.5-5.1) mmol/L Chloride 105 (98-107) mmol/L Carbon Dioxide 26 (22-30) mmol/L Anion Gap 14.1 (5-15) MEQ/L BUN 17 (7-17) mg/dL Creatinine 0.90 (0.52-1.04) mg/dL Estimated GFR > 60.0 ML/MIN Glucose 123 H (74-106) mg/dL Calcium 10.2 (8.4-10.2) mg/dL Total Bilirubin 0.80 (0.2-1.3) mg/dL AST 26 (14-36) U/L ALT 27 (0-35) U/L Alkaline Phosphatase 103 (38-126) U/L Troponin I < 0.012 (0.000-0.034) ng/mL Serum Total Protein 7.7 (6.3-8.2) g/dL Albumin 4.4 (3.5-5.0) g/dL Lipase 104 (23-300) U/L Urine Color YELLOW (YELLOW) Urine Appearance CLEAR (CLEAR) Urine pH 5.0 (5-6) Ur Specific [place] 1.040 (1.005-1.025) Urine Protein NEGATIVE (Negative) Urine Ketones NEGATIVE (NEGATIVE) Urine Blood NEGATIVE (0-5) [place]/ul Urine Nitrite NEGATIVE (NEGATIVE) Urine Bilirubin NEGATIVE (NEGATIVE) Urine Urobilinogen NEGATIVE (0-1) mg/dL Ur Leukocyte Esterase MODERATE (NEGATIVE) Urine WBC (Auto) 6-10 (0-5) /HPF Urine RBC (Auto) 3-5 (0-2) /HPF U Epithel Cells (Auto) NONE (FEW) /HPF Urine Bacteria (Auto) RARE (NEGATIVE) /HPF Urine Mucus (Auto) SLIGHT (NEGATIVE) /HPF Urine Culture Reflexed NO (NO) Urine Glucose NEGATIVE (NEGATIVE) mg/dL 11/09/20 Range/Units 15:50 WBC 8.5 (4.0-10.5) K/mm3 RBC 4.73 (4.1-5.4) M/mm3 Hgb 14.2 (12.0-16.0) gm/dl Hct 44.5 (35-47) % MCV 94.1 (78-100) fl MCH 30.0 (26-32) pg MCHC 31.9 L (32-36) g/dl RDW 14.8 H (11.5-14.0) % Plt Count 312 (150-450) K/mm3 MPV 9.6 (7.5-11.0) fl Gran % 61.9 (36.0-66.0) % Eos # (Auto) 0.11 (0-0.5) Absolute Lymphs (auto) 2.58 (1.0-4.6) Absolute Monos (auto) 0.55 (0.0-1.3) Lymphocytes % 30.2 (24.0-44.0) % Monocytes % 6.4 (0.0-12.0) % Eosinophils % 1.3 (0.00-5.0) % Basophils % 0.2 (0.0-0.4) % Absolute Granulocytes 5.27 (1.4-6.9) Basophils # 0.02 (0-0.4) Sodium (137-145) mmol/L Potassium (3.5-5.1) mmol/L Chloride (98-107) mmol/L Carbon Dioxide (22-30) mmol/L Anion Gap (5-15) MEQ/L BUN (7-17) mg/dL Creatinine (0.52-1.04) mg/dL Estimated GFR ML/MIN Glucose (74-106) mg/dL Calcium (8.4-10.2) mg/dL Total Bilirubin (0.2-1.3) mg/dL AST (14-36) U/L ALT (0-35) U/L Alkaline Phosphatase (38-126) U/L Troponin I (0.000-0.034) ng/mL Serum Total Protein (6.3-8.2) g/dL Albumin (3.5-5.0) g/dL Lipase (23-300) U/L Urine Color (YELLOW) Urine Appearance (CLEAR) Urine pH (5-6) Ur Specific [place] (1.005-1.025) Urine Protein (Negative) Urine Ketones (NEGATIVE) Urine Blood (0-5) Alfred[place]/ul Urine Nitrite (NEGATIVE) Urine Bilirubin (NEGATIVE) Urine Urobilinogen (0-1) mg/dL Ur Leukocyte Esterase (NEGATIVE) Urine WBC (Auto) (0-5) /HPF Urine RBC (Auto) (0-2) /HPF U Epithel Cells (Auto) (FEW) /HPF Urine Bacteria (Auto) (NEGATIVE) /HPF Urine Mucus (Auto) (NEGATIVE) /HPF Urine Culture Reflexed (NO) Urine Glucose (NEGATIVE) mg/dL - Progress Progress: improved Progress Note: Patient reassessed. Pain improved but not resolved. Laboratory work-up essentially nonremarkable. Vital stable. CT scan negative for acute intra- abdominal pathology. Constipation observed. Patient will take [id number] laxatives as needed. Case discussed with Dr. Bonner. Patient agrees with follow-up with Dr. Bonner within 48 hours for reevaluation. Patient has a pain specialist to follow-up with as well. 11/09/20 18:29 11/09/20 18:31 11/09/20 18:32 Discussed with : Jimmy Will see patient in: office Counseled pt/family regarding: lab results, diagnosis, need for follow-up, rad results - Departure Departure Disposition: Home Clinical Impression: Hiatal hernia, Constipation, Arthritis of spine, Chronic pain Condition: Stable Critical Care Time: No Referrals: MAXIMILIANO BONNER MD [Primary Care Provider] - Additional Instructions: Discharge/Care Plan OLY PATEL was seen on 11/09/20 in the Emergency Room. The patient was counseled regarding Diagnosis,Lab results, Imaging studies, need for follow up and when to return to the Emergency Room. Prescriptions given: Discharge Note I have spoken with the patient and/or caregivers. I have explained the patient's condition, diagnosis and treatment plan based on the information available to me at this time. I have answered the patient's and/or caregiver's questions and addressed any concerns. The patient and/or caregivers have as good understanding of the patient's diagnosis, condition and treatment plan as can be expected at this point. The vital signs have been stable. The patient's condition is stable and appropriate for discharge from the emergency department. The patient will pursue further outpatient evaluation with the primary care physician or other designated or consulting physician as outlined in the discharge instructions. The patient and/or caregivers are agreeable to this plan of care and follow-up instructions have been explained in detail. The patient and/or caregivers have received these instruction. The patient/and or caregivers are aware that any significant change in condition or worsening of symptoms should prompt an immediate return to this or the closest emergency department or call 911.
--- NOTE | 2020-11-09 16:58 | XRAY ---
Indication: Back and rib pain. Multiple contiguous axial images obtained through the abdomen and pelvis using 80 cc Isovue 370 contrast. Comparison: March 07, 2020. Lung bases remain hyperinflated with minimal subsegmental atelectasis/scarring. No infiltrate or effusion. Heart not enlarged. Again small hiatal hernia. Noncontrasted stomach and bowel loops remain nonobstructed with normal appendix. There is again mild fecal debris predominantly in the ascending and transverse colon. Again hysterectomy and cholecystectomy. No free fluid/air. Remaining liver, pancreas, spleen, adrenal glands, kidneys, ureters, bladder, and aorta are unremarkable. No pathologic retroperitoneal lymphadenopathy. Osseous structures again demonstrates mild degenerative changes throughout the thoracolumbar spine and remote L1 superior endplate fracture. No ventral or inguinal hernias. Impression: 1. Again mild diffuse fecal stasis, small hiatal hernia, and chronic bony findings. 2. Remaining CT abdomen/pelvis with contrast exam is negative.
[2020-11-09 17:07] LABS: Appearance CLEAR (CLEAR); Bacteria RARE /HPF (NEGATIVE); Bilirubin NEGATIVE (NEGATIVE); Blood NEGATIVE Ery/ul (0-5); Glucose NEGATIVE (NEGATIVE); Ketones NEGATIVE (NEGATIVE); Leukocyte Esterase MODERATE (NEGATIVE); Mucus SLIGHT /HPF (NEGATIVE); Nitrite NEGATIVE (NEGATIVE); Protein,Urine Dip NEGATIVE (Negative); Urobilinogen NEGATIVE mg/dL (0-1)
[2020-11-09] MEDS ORDERED: Decadron 4 MG INJ ONE ×2 (18:39→18:41)
[2020-11-09] MEDS ORDERED: TORAdol 30 mg Injection ONE (18:39)
[2020-11-09] MEDS: Decadron 4 MG INJ IV ONE (18:40)
[2020-11-09] MEDS: TORAdol 30 mg Injection IM ONE (18:41)
[2020-11-09 19:13] VITALS: BP 154/80; PULSE 69; O2SAT 87
== END 2020-11-09 19:18 | disposition home or self-care (01) ==
LOC: ED 15:13
DX: K44.9 Diaphragmatic hernia without obstruction or gangrene (principal); K59.00 Constipation, unspecified; M19.90 Unspecified osteoarthritis, unspecified site; M47.819 Spondylosis without myelopathy or radiculopathy, site unspecified; G89.29 Other chronic pain; Z79.899 Other long term (current) drug therapy
CPT/HCPCS: 36000; 36415; 74177; 80053; 81001; 83690; 84484; 85025; 93005; 96372; 96374; 99284; J1100; J1885

== ENCOUNTER 2020-12-19 20:24 | Emergency (ER) | payer MEDICARE ==
[2020-12-19 20:52] VITALS: O2SAT 97
--- NOTE | 2020-12-19 21:05 | ERPHSYRPT ---
- History of Present Illness Source: patient Exam Limitations: other (Poor historian) Patient Subjective Stated Complaint: pt c/o back pain which started bad this afternoon Triage Nursing Assessment: pt c/o mid back pain. Pt has hx of chronic back pain but the pain got worse around noon today and hasn't stopped. Pt drove herself to ER, pt is tearful. Pt states, "I've had [address] Lujan but they haven't helped, he's gonna do a third one". Pt states, "they saw an old fx in by back on xray". Pt denies falling or any injury, has hx of arthritis. Physician History: 65 yo wf complains of superior lumbar/inferior T-spine pain x 10 months. Pt sees pain medicine and has had 2 "epidural injections". Standing upright makes the pain worse while lying in the left lateral decubitus position makes it better. She denies acute injury/fever/chest pain/dyspnea/dysuria/hematuria/abdominal pain/cough/coryza. Pt drove herself to the ER. Timing/Duration: other (10months) Method of Injury: unknown Quality: stabbing Back Pain Location: lumbar spine Severity of Pain-Max: severe Severity of Pain-Current: severe Modifying Factors: Improves With: movement Associated Symptoms: lower back pain, No fever, No chills, No sweating, No urina ry incontinence, No loss of bowel control, No constipation, No nausea, No vomiting, No problems urinating, No light-headedness, No dizziness, No numbness in legs/feet, No weakness, No sensory/motor loss, No tingling in legs/feet, No muscle spasms Previous symptoms: no prior history Allergies/Adverse Reactions: bupropion HCl [From Wellbutrin] Allergy (Verified 12/19/20 20:45) metoclopramide Adverse Reaction (Verified 12/19/20 20:45) Home Medications: Bisoprolol/Hydrochlorothiazide [Ziac 10-6.25 mg Tablet] 1 each PO DAILY 11/27/15 [History] Omeprazole [Prilosec] 40 mg PO DAILY 11/27/15 [History] Simvastatin 20 mg PO DAILY 11/27/15 [History] Alprazolam [Xanax] 0.5 mg PO BID PRN 09/19/19 [History] Aspirin EC 81 mg [Ecotrin 81 mg] 81 mg PO DAILY 09/19/19 [History] Gabapentin [Neurontin] 300 mg PO BID 08/31/20 [History] Hx Tetanus, Diphtheria Vaccination/Date Given: Yes Hx Influenza Vaccination/Date Given: Yes Hx Pneumococcal Vaccination/Date Given: Yes Immunizations Up to Date: Yes Travel Risk - International Travel Have you traveled outside of the country in past 3 weeks: No - Coronavirus Screening Are you exhibiting any of the following symptoms?: No Close contact with a COVID-19 positive Pt in past 14-21 Days: No - Vaccine Status Have you recieved a Covid-19 vaccination: Yes 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: [employer] - Vaccination Dates Date of 2cond Vaccination (if applicable): 09/25 - Review of Systems Constitutional: No Symptoms Eyes: No Symptoms Ears, Nose, & Throat: No Symptoms Respiratory: No Symptoms Cardiac: No Symptoms Abdominal/Gastrointestinal: No Symptoms Genitourinary Symptoms: No Symptoms Musculoskeletal: No Symptoms, Back Pain Skin: No Symptoms Neurological: No Symptoms Psychological: No Symptoms Endocrine: No Symptoms Hematologic/Lymphatic: No Symptoms Immunological/Allergic: No Symptoms - Past Medical History Pertinent Past Medical History: Yes Neurological History: No Pertinent History ENT History: No Pertinent History Cardiac History: High Cholesterol, Hypertension Respiratory History: No Pertinent History Endocrine Medical History: No Pertinent History Musculoskeletal History: No Pertinent History GI Medical History: GERD, Hernia History: No Pertinent History Psycho-Social History: Depression Female Reproductive Disorders: No Pertinent History Other Medical History: gastroparesis. scheduled with neurologist for abnormal head ct, weakness on left side - Past Surgical History Past Surgical History: Yes Neuro Surgical History: No Pertinent History Cardiac: No Pertinent History Respiratory: No Pertinent History Gastrointestinal: Cholecystectomy Genitourinary: No Pertinent History Musculoskeletal: No Pertinent History Female Surgical History: Hysterectomy Other Surgical History: breast bx - Social History Smoking Status: Never smoker Exposure to second hand smoke: No Drug Use: none Patient Lives Alone: Yes Significant Family History: no pertinent family hx - Female History Hx Now: No - Nursing Vital Signs Nursing Vital Signs: Initial Vital Signs Temperature 97.6 F 12/19/20 20:28 Pulse Rate 97 H 12/19/20 20:28 Respiratory Rate 20 12/19/20 20:28 Blood Pressure 125/104 12/19/20 20:28 O2 Sat by Pulse Oximetry 97 12/19/20 20:28 Pain Scale Pain Intensity [] 10 Pain Intensity 8 - Physical Exam General Appearance: no apparent distress (In pain) Eye Exam: PERRL/EOMI, eyes nml inspection Ears, Nose, Throat Exam: normal ENT inspection, TMs normal, pharynx normal, moist mucous membranes Neck Exam: normal inspection, non-tender, supple, full range of motion, No meningismus, No mass, No Brudzinski, No Kernig's, No carotid bruit Respiratory Exam: normal breath sounds, lungs clear, airway intact, No respiratory distress Cardiovascular Exam: regular rate/rhythm, normal heart sounds, normal peripheral pulses, No murmur Gastrointestinal Exam: soft, normal bowel sounds, No tenderness Back Exam: vertebral tenderness (Superior L-spine, inferior T-spine TTP) Extremity Exam: normal inspection, normal range of motion Neurologic Exam: alert, oriented x 3, cooperative, winder fixer II-XII nml as tested, normal mood/affect, nml cerebellar function, sensation nml, No motor deficits, No sensory deficit Skin Exam: normal color, warm, dry, No rash Lymphatic Exam: No adenopathy SpO2 Interpretation: normal SpO2: 97 O2 Delivery: Room Air - CT Exams Lumbar Spine CT Interpretation: Discussed w/radiologist (Stable L1 superior endplate fx/L4-L5 broad base disc bulge) Ordered Tests: Active Orders 24 hr Category Date Time Status LUMBAR SPINE W/O [CT] Stat Exams 12/19/20 20:58 Taken CULTURE,URINE Stat Lab 12/19/20 20:59 Received UA W/RFX UR CULTURE Stat Lab 12/19/20 20:59 Completed Medication Summary Discontinued Medications Generic Name Dose Route Start Last Admin Trade Name Frida PRN Reason Stop Dose Admin Ciprofloxacin 500 mg 12/19/20 22:37 12/19/20 22:39 Cipro 500 Mg PO 12/19/20 22:38 500 mg ONCE STA Administration Ciprofloxacin Confirm 12/19/20 22:37 Cipro 500 Mg Administered 12/19/20 22:38 Dose 500 mg .ROUTE .STK-MED ONE Ketorolac Tromethamine 60 mg 12/19/20 22:23 12/19/20 22:38 Toradol 30 Mg Injection IM 12/19/20 22:24 60 mg STAT ONE Administration Ketorolac Tromethamine Confirm 12/19/20 22:37 Toradol 30 Mg Injection Administered 12/19/20 22:38 Dose 60 mg .ROUTE .STK-MED ONE Lab/Rad Data: Laboratory Results 12/19/20 Range/Units 20:59 Urine Color YELLOW (YELLOW) Urine Appearance SLIGHTLY CLOUDY (CLEAR) Urine pH 5.0 (5-6) Ur Specific [place] 1.011 (1.005-1.025) Urine Protein NEGATIVE (Negative) Urine Ketones NEGATIVE (NEGATIVE) Urine Blood NEGATIVE (0-5) Alfredito/ul Urine Nitrite NEGATIVE (NEGATIVE) Urine Bilirubin NEGATIVE (NEGATIVE) Urine Urobilinogen NEGATIVE (0-1) mg/dL Ur Leukocyte Esterase MODERATE (NEGATIVE) Urine WBC (Auto) 26-50 (0-5) /HPF Urine RBC (Auto) 0-2 (0-2) /HPF U Hyaline Cast (Auto) 3-5 (0-2) /LPF U Epithel Cells (Auto) RARE (FEW) /HPF Urine Bacteria (Auto) RARE (NEGATIVE) /HPF Urine Mucus (Auto) SLIGHT (NEGATIVE) /HPF Urine Culture Reflexed YES (NO) Urine Glucose NEGATIVE (NEGATIVE) mg/dL - Progress Progress Note: 12/19/20 23:09 60mg IM Toradol. Pt ambulated to her vehicle wo difficulty. Counseled pt/family regarding: diagnosis, need for follow-up, rad results - Departure Departure Disposition: Home Clinical Impression: UTI (urinary tract infection), Degenerative disc disease Condition: Stable Critical Care Time: No Referrals: MAXIMILIANO BONNER MD [Primary Care Provider] - Instructions: Low Back Pain (DC), Urinary Tract Infection, Adult (DC) Additional Instructions: Follow up with your pain doctor in the morning Start Cipro twice a day for 3 days Return to ER for increasing pain or temperature greater than 100.5 Prescriptions: Ciprofloxacin HCl [Cipro] 500 mg PO BID #6 tablet
[2020-12-19 22:07] LABS: Appearance SLIGHTLY CLOUDY (CLEAR); Bacteria RARE /HPF (NEGATIVE); Bilirubin NEGATIVE (NEGATIVE); Blood NEGATIVE Ery/ul (0-5); Epithelial Cells RARE /HPF (FEW); Glucose NEGATIVE (NEGATIVE); Ketones NEGATIVE (NEGATIVE); Leukocyte Esterase MODERATE (NEGATIVE); Mucus SLIGHT /HPF (NEGATIVE); Nitrite NEGATIVE (NEGATIVE); Protein,Urine Dip NEGATIVE (Negative); RBC 0-2 /HPF (0-2); Specific Gravity 1.011 (1.005-1.025); Urobilinogen NEGATIVE mg/dL (0-1); WBC 26-50 /HPF (0-5)
[2020-12-19] MEDS ORDERED: TORAdol 30 mg Injection IM ONE (22:23)
[2020-12-19 22:36] VITALS: BP 99/66; PULSE 66
[2020-12-19] MEDS ORDERED: Cipro 500 MG PO STA (22:37)
[2020-12-19] MEDS ORDERED: TORAdol 30 mg Injection ONE (22:37)
[2020-12-19] MEDS ORDERED: Cipro 500 MG ONE (22:37)
--- NOTE | 2020-12-20 08:42 | XRAY ---
Indication: Thoracolumbar pain. No known injury. Multiple contiguous axial images obtained through the lumbar spine. Sagittal and coronal reformatted images obtained. Comparison: November 09, 2020. Axial images demonstrate stable remote L1 superior endplate fracture, mild L4-L5 broad-based disc bulge, and mild/moderate bilateral L3-S1 degenerative facet hypertrophy. No acute fracture, large disc herniation, or spinal canal stenosis. Sagittal and coronal reformatted images again demonstrates normal lumbar lordosis with minimal dextroscoliosis centered at L2. Disc spaces maintained. No acute compression fracture or subluxation. Visualized noncontrasted soft tissues again demonstrates mild bilateral iliac calcifications. Impression: 1. Stable lower lumbar degenerative changes, remote L1 endplate fracture, and vascular calcifications. 2. No new/acute abnormalities.
== END 2020-12-19 22:51 | disposition home or self-care (01) ==
LOC: ED 20:24
DX: N39.0 Urinary tract infection, site not specified (principal); M51.36 Other intervertebral disc degeneration, lumbar region; E78.00 Pure hypercholesterolemia, unspecified; Z79.899 Other long term (current) drug therapy
CPT/HCPCS: 72131; 81001; 87077; 87086; 96372; 99284; J1885; A9270-GY

== ENCOUNTER 2020-12-24 01:01 | Emergency (ER) | payer MEDICARE ==
[2020-12-24] MEDS ORDERED: Sodium Chloride 0.9% 1000 ML 1,000 ML IV STA (01:43)
[2020-12-24] MEDS ORDERED: Sodium Chloride 0.9% 1000 ML 1,000 ML ONE (01:50)
--- NOTE | 2020-12-24 01:55 | ERPHSYRPT ---
- History of Present Illness Time Seen by Provider: 12/24/20 01:50 Source: patient, EMS Exam Limitations: no limitations Patient Subjective Stated Complaint: "I fell out of bed." Triage Nursing Assessment: Patient reported falling out of bed when she got up to get a drink of water. She reported falling sideways. Denied striking her head or having any loss of consciousness. She reported taking roughly 5 count alprazolam 0.5mg tablets throughout the day with 3 of those being before she went to bed. Her prescription is for alprazolam 0.5mg - take 1 tab PO BID. She reported taking two in the afternoon and three in the evening due to neck pain. Denied any thoughts of self-harm or suicidal ideations. Denied headache, dizziness, chest pain, or shortness of breath. reported neck pain and back pain which are chronic. She has a fracture in her spine that was diagnosed march. patient somnolent and arousable to speech. having difficulty staying awake during the interview. Pupils 4mm brisk bilateral. neck supple with tenderness. Symmetrical chest expansion. heart tones S1/S2. Lungs vesiculd. Peripheral pulses +3 bilateral. No noted dependent edema. Physician History: "I fell out of bed." one hour ago. Patient reported falling out of bed when she got up to get a drink of water. She reported falling sideways. Denied striking her head or having any loss of consciousness. She reported taking roughly 5 count alprazolam 0.5mg tablets throughout the day with 3 of those being before she went to bed. Her prescription is for alprazolam 0.5mg - take 1 tab PO BID. She reported taking two in the afternoon and three in the evening due to neck pain. Denied any thoughts of self-harm or suicidal ideations. Denied headache, dizziness, chest pain, or shortness of breath. reported neck pain and back pain which are chronic. She has a fracture in her spine that was diagnosed march. patient somnolent and arousable to speech. having difficulty staying awake during the interview. Patient has been and weakness in her left side of the body mainly left upper extremity for which patient has underwent extensive neurological evaluation by neurologist and pain management service and has been taking gabapentin and amitriptyline as well as Xanax. But patient denies any improvement. She denies taking extra Xanax but she got 1 or 2 pills in 2 different bottles so she was not sure which pills she took today. She is also taking amitriptyline to relieve her spasm and pain on her left side of the neck. She was told by one neurologist that she has Parkinson's disease but she is not showing any visible signs of Parkinson's disease. Timing/Duration: today Severity: mild Associated Symptoms: denies symptoms Allergies/Adverse Reactions: bupropion HCl [From Wellbutrin] Allergy (Verified 12/24/20 01:10) metoclopramide Adverse Reaction (Verified 12/24/20 01:10) Home Medications: Bisoprolol/Hydrochlorothiazide [Ziac 10-6.25 mg Tablet] 1 each PO DAILY 11/27/15 [History] Omeprazole [Prilosec] 40 mg PO DAILY 11/27/15 [History] Simvastatin 20 mg PO DAILY 11/27/15 [History] Alprazolam [Xanax] 0.5 mg PO BID PRN 09/19/19 [History] Aspirin EC 81 mg [Ecotrin 81 mg] 81 mg PO DAILY 09/19/19 [History] Gabapentin [Neurontin] 300 mg PO BID 08/31/20 [History] Hx Tetanus, Diphtheria Vaccination/Date Given: Yes Hx Influenza Vaccination/Date Given: Yes Hx Pneumococcal Vaccination/Date Given: Yes Travel Risk - International Travel Have you traveled outside of the country in past 3 weeks: No - Coronavirus Screening Are you exhibiting any of the following symptoms?: No Close contact with a COVID-19 positive Pt in past 14-21 Days: No - Vaccine Status Have you recieved a Covid-19 vaccination: Yes 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: [email or web address] - Vaccination Dates Date of 2cond Vaccination (if applicable): - Review of Systems Constitutional: Other (somnolence, ), No Fever, No Chills Eyes: No Symptoms Ears, Nose, & Throat: No Symptoms Respiratory: No Cough, No Dyspnea Cardiac: No Chest Pain, No Edema, No Syncope Abdominal/Gastrointestinal: No Abdominal Pain, No Nausea, No Vomiting, No Diarrhea Genitourinary Symptoms: No Dysuria Musculoskeletal: Fall, No Back Pain, No Neck Pain Skin: No Rash Neurological: No Dizziness, No Focal Weakness, No Sensory Changes Psychological: No Symptoms Endocrine: No Symptoms All Other Systems: Reviewed and Negative - Past Medical History Pertinent Past Medical History: Yes Neurological History: No Pertinent History ENT History: No Pertinent History Cardiac History: High Cholesterol, Hypertension Respiratory History: No Pertinent History Endocrine Medical History: No Pertinent History Musculoskeletal History: No Pertinent History GI Medical History: GERD, Hernia History: No Pertinent History Psycho-Social History: Depression Female Reproductive Disorders: No Pertinent History Other Medical History: gastroparesis. scheduled with neurologist for abnormal head ct, weakness on left side - Past Surgical History Past Surgical History: Yes Neuro Surgical History: No Pertinent History Cardiac: No Pertinent History Respiratory: No Pertinent History Gastrointestinal: Cholecystectomy Genitourinary: No Pertinent History Musculoskeletal: No Pertinent History Female Surgical History: Hysterectomy Other Surgical History: breast bx - Social History Smoking Status: Never smoker Exposure to second hand smoke: No Drug Use: none Patient Lives Alone: Yes Significant Family History: no pertinent family hx - Nursing Vital Signs Nursing Vital Signs: Initial Vital Signs Temperature 97.1 F 12/24/20 01:04 Pulse Rate 98 H 12/24/20 01:04 Respiratory Rate 18 12/24/20 01:04 Blood Pressure 118/62 12/24/20 01:04 O2 Sat by Pulse Oximetry 99 12/24/20 01:04 Pain Scale Pain Intensity 6 - Physical Exam General Appearance: mild distress, lethargy Eye Exam: PERRL/EOMI Ears, Nose, Throat Exam: normal ENT inspection Neck Exam: normal inspection Respiratory Exam: normal breath sounds Cardiovascular Exam: regular rate/rhythm Gastrointestinal/Abdomen Exam: soft Back Exam: normal inspection Extremity Exam: normal inspection Neurologic Exam: alert, oriented x 3, cooperative, confusion, No motor deficits, No sensory deficit, No facial droop, No slurred speech, No aphasia, No dysarthria, No abnormal gait Skin Exam: normal color SpO2 Interpretation: normal SpO2: 99 O2 Delivery: Room Air - Course Nursing assessment & vital signs reviewed: Yes - CT Exams Head CT Interpretation: Tele-radiologist Report, No/Intracranial Hemorrhag Ordered Tests: Active Orders 24 hr Category Date Time Status HEAD WITHOUT CONTRAST [CT] Stat Exams 12/24/20 01:45 Taken CBC W DIFF Stat Lab 12/24/20 02:35 Completed CMP Stat Lab 12/24/20 02:35 Completed ETHYL ALCOHOL Stat Lab 12/24/20 02:35 Completed MAGNESIUM Stat Lab 12/24/20 02:35 Completed TROPONIN Stat Lab 12/24/20 02:35 Completed UA W/RFX UR CULTURE Stat Lab 12/24/20 01:45 Completed Urine Triage Profile Stat Lab 12/24/20 01:44 Completed Medication Summary Discontinued Medications Generic Name Dose Route Start Last Admin Trade Name Frida PRN Reason Stop Dose Admin Sodium Chloride 1,000 mls @ 999 mls/hr 12/24/20 01:43 12/24/20 01:51 Sodium Chloride 0.9% 1000 Ml IV 12/24/20 02:43 999 mls/hr .Q1H1M STA Administration Sodium Chloride Confirm 12/24/20 01:50 Sodium Chloride 0.9% 1000 Ml Administered 12/24/20 01:51 Dose 1,000 mls @ ud .ROUTE .STK-MED ONE Lab/Rad Data: Laboratory Result Diagrams 12/24/20 02:35 12/24/20 02:35 Laboratory Results 12/24/20 12/24/20 12/24/20 Range/Units 02:35 02:35 01:45 WBC 8.4 (4.0-10.5) K/mm3 RBC 4.38 (4.1-5.4) M/mm3 Hgb 12.8 (12.0-16.0) gm/dl Hct 41.9 (35-47) % MCV 95.7 (78-100) fl MCH 29.2 (26-32) pg MCHC 30.5 L (32-36) g/dl RDW 14.8 H (11.5-14.0) % Plt Count 277 (150-450) K/mm3 MPV 9.5 (7.5-11.0) fl Gran % 59.5 (36.0-66.0) % Eos # (Auto) 0.11 (0-0.5) Absolute Lymphs (auto) 2.64 (1.0-4.6) Absolute Monos (auto) 0.60 (0.0-1.3) Lymphocytes % 31.6 (24.0-44.0) % Monocytes % 7.2 (0.0-12.0) % Eosinophils % 1.3 (0.00-5.0) % Basophils % 0.4 (0.0-0.4) % Absolute Granulocytes 4.98 (1.4-6.9) Basophils # 0.03 (0-0.4) Sodium 140 (137-145) mmol/L Potassium 3.7 (3.5-5.1) mmol/L Chloride 109 H (98-107) mmol/L Carbon Dioxide 22 (22-30) mmol/L Anion Gap 12.7 (5-15) MEQ/L BUN 13 (7-17) mg/dL Creatinine 0.94 (0.52-1.04) mg/dL Estimated GFR > 60.0 ML/MIN Glucose 93 (74-106) mg/dL Calcium 8.6 (8.4-10.2) mg/dL Magnesium 2.2 (1.6-2.3) mg/dL Total Bilirubin 1.60 H (0.2-1.3) mg/dL AST 25 (14-36) U/L ALT 19 (0-35) U/L Alkaline Phosphatase 97 (38-126) U/L Troponin I < 0.012 (0.000-0.034) ng/mL Serum Total Protein 6.6 (6.3-8.2) g/dL Albumin 3.6 (3.5-5.0) g/dL Urine Color YELLOW (YELLOW) Urine Appearance SLIGHTLY CLOUDY (CLEAR) Urine pH 5.0 (5-6) Ur Specific [place] 1.010 (1.005-1.025) Urine Protein NEGATIVE (Negative) Urine Ketones NEGATIVE (NEGATIVE) Urine Blood NEGATIVE (0-5) [place]/ul Urine Nitrite NEGATIVE (NEGATIVE) Urine Bilirubin NEGATIVE (NEGATIVE) Urine Urobilinogen NEGATIVE (0-1) mg/dL Ur Leukocyte Esterase NEGATIVE (NEGATIVE) Urine WBC (Auto) 0-2 (0-5) /HPF Urine RBC (Auto) 0-2 (0-2) /HPF U Epithel Cells (Auto) NONE (FEW) /HPF Urine Bacteria (Auto) NONE (NEGATIVE) /HPF Urine Mucus (Auto) SLIGHT (NEGATIVE) /HPF Urine Culture Reflexed NO (NO) Urine Glucose NEGATIVE (NEGATIVE) mg/dL Urine Opiates Level (NEGATIVE) Ur Methadone (NEGATIVE) Urine Barbiturates (NEGATIVE) Ur Phencyclidine (PCP) (NEGATIVE) Urine Amphetamine (NEGATIVE) U Benzodiazepine Level (NEGATIVE) Urine Cocaine (NEGATIVE) Urine Marijuana (THC) (NEGATIVE) Ethyl Alcohol < 10 (0-10) mg/dL 12/24/20 Range/Units 01:44 WBC (4.0-10.5) K/mm3 RBC (4.1-5.4) M/mm3 Hgb (12.0-16.0) gm/dl Hct (35-47) % MCV (78-100) fl MCH (26-32) pg MCHC (32-36) g/dl RDW (11.5-14.0) % Plt Count (150-450) K/mm3 MPV (7.5-11.0) fl Gran % (36.0-66.0) % Eos # (Auto) (0-0.5) Absolute Lymphs (auto) (1.0-4.6) Absolute Monos (auto) (0.0-1.3) Lymphocytes % (24.0-44.0) % Monocytes % (0.0-12.0) % Eosinophils % (0.00-5.0) % Basophils % (0.0-0.4) % Absolute Granulocytes (1.4-6.9) Basophils # (0-0.4) Sodium (137-145) mmol/L Potassium (3.5-5.1) mmol/L Chloride (98-107) mmol/L Carbon Dioxide (22-30) mmol/L Anion Gap (5-15) MEQ/L BUN (7-17) mg/dL Creatinine (0.52-1.04) mg/dL Estimated GFR ML/MIN Glucose (74-106) mg/dL Calcium (8.4-10.2) mg/dL Magnesium (1.6-2.3) mg/dL Total Bilirubin (0.2-1.3) mg/dL AST (14-36) U/L ALT (0-35) U/L Alkaline Phosphatase (38-126) U/L Troponin I (0.000-0.034) ng/mL Serum Total Protein (6.3-8.2) g/dL Albumin (3.5-5.0) g/dL Urine Color (YELLOW) Urine Appearance (CLEAR) Urine pH (5-6) Ur Specific [place] (1.005-1.025) Urine Protein (Negative) Urine Ketones (NEGATIVE) Urine Blood (0-5) [place]/ul Urine Nitrite (NEGATIVE) Urine Bilirubin (NEGATIVE) Urine Urobilinogen (0-1) mg/dL Ur Leukocyte Esterase (NEGATIVE) Urine WBC (Auto) (0-5) /HPF Urine RBC (Auto) (0-2) /HPF U Epithel Cells (Auto) (FEW) /HPF Urine Bacteria (Auto) (NEGATIVE) /HPF Urine Mucus (Auto) (NEGATIVE) /HPF Urine Culture Reflexed (NO) Urine Glucose (NEGATIVE) mg/dL Urine Opiates Level NEGATIVE (NEGATIVE) Ur Methadone NEGATIVE (NEGATIVE) Urine Barbiturates NEGATIVE (NEGATIVE) Ur Phencyclidine (PCP) NEGATIVE (NEGATIVE) Urine Amphetamine NEGATIVE (NEGATIVE) U Benzodiazepine Level POSITIVE (NEGATIVE) Urine Cocaine NEGATIVE (NEGATIVE) Urine Marijuana (THC) NEGATIVE (NEGATIVE) Ethyl Alcohol (0-10) mg/dL - Progress Progress: improved Progress Note: 12/24/20 03:27 Patient is more alert awake. Patient daughter is also on bedside I talked to both of them and explained that her confusion and lethargy is probably due to amitriptyline and Xanax. I told her to stop taking Xanax. I advised her to follow-up with Dr. Lujan. I also advise her and her daughter to follow-up with her primary care physician on Saturday or Saturday. She is also advised to bring all her home medication to her primary care physician office. Patient daughter is informed that she should stay with patient for at least next 12 hours. Patient daughter agreed and she will stay with the patient. 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 Follow-up with your primary care physician in next 2 to 3 days. Please carry all her home medication when you go and see your primary care physician. Please stay under adult supervision for at least the next 12 hours. Discharge/Care Plan OLY PATEL was seen on 12/24/20 in the Emergency Room. The patient was counseled regarding Diagnosis,Lab results, Imaging studies, need for follow up and when to return to the Emergency Room. Prescriptions given: Discharge Note I have spoken with the patient and/or caregivers. I have explained the patient's condition, diagnosis and treatment plan based on the information available to me at this time. I have answered the patient's and/or caregiver's questions and addressed any concerns. The patient and/or caregivers have as good understanding of the patient's diagnosis, condition and treatment plan as can be expected at this point. The vital signs have been stable. The patient's condition is stable and appropriate for discharge from the emergency department. The patient will pursue further outpatient evaluation with the primary care physician or other designated or consulting physician as outlined in the discharge instructions. The patient and/or caregivers are agreeable to this plan of care and follow-up instructions have been explained in detail. The patient and/or caregivers have received these instruction. The patient/and or caregivers are aware that any significant change in condition or worsening of symptoms should prompt an immediate return to this or the closest emergency department or call 911. OLY PATEL was seen on 12/24/20 n the Emergency Room. At that time you were treated for an emergent condition, during your visit Laboratory, Radiology and/or other procedures may have been ordered. It is very important that you follow-up with your Primary Care Physician MAXIMILIANO BONNER within the next 24-48 hours to review your Emergency Room visit and the final results of testing that was ordered. Some test results such as Urine Cultures, Blood Cultures, and other cultures if ordered will not be finalized for 24-48 hours. If you do not have a Primary Care Provider please call the medical records department at [phone] to obtain a copy of your results or you may sign into our patient portal to obtain these results by visiting us @ [email or web address] and completing the following steps: 1. Click on the Patient Portal link 2. Click the Patient Self Enrollment Link to complete the enrollment form and entering your 3. Once the enrollment form is completed you will receive an email with a temporary ID and password at the email address you provided. 4. Next choose a user name and password. Your user name must be at least 4 characters long and your password must be at least 4 characters long. 5. Choose a security question from the list and provide your answer to the ques tion. If you already have signed into the Health Portal you may access your Health Car e Information 28/01 by the following steps: 1. Login to our website @ [email or web address] 2. Enter your original user name and password. FAQS The [facility] Health Portal is an online tool that contains your Lab Results, Radiology Reports, Visit History, Discharge Instructions and Health Summary Lab and Radiology Results will not be available for 72 hours on the portal. The Portal is a secure site, passwords are encryted and URLs are re-written so they cannot be copied and pasted. You and authorized family members are the only ones who can access your Portal. Also there is a timeout feature that protects your information if you leave the Portal page open. If you have technical difficulty please use the Contact Us link on the page this will allow you to submit any questions you have regarding the Portal or you may contact the Medical Record Department at [phone].
[2020-12-24 02:51] LABS: Absolute Neutrophil Ct (ANC) 4.98 (1.4-6.9); BASOPHIL % 0.4 % (0.0-0.4); Basophil (Absolute #) 0.03 (0-0.4); Eosinophil % 1.3 % (0.00-5.0); Eosinophil (Absolute #) 0.11 (0-0.5); Hematocrit 41.9 % (35-47); Hemoglobin 12.8 gm/dl (12.0-16.0); Lymphocyte (Absolute #) 2.64 (1.0-4.6); Lymphocytes % 31.6 % (24.0-44.0); Mean Cell Volume 95.7 fl (78-100); Mean Corpuscular Hemoglobin 29.2 pg (26-32); Mean Corpuscular Hgb Concent. 30.5 g/dl (32-36); Mean Platelet Volume 9.5 fl (7.5-11.0); Monocytes % 7.2 % (0.0-12.0); Neutrophil % 59.5 % (36.0-66.0); Platelet Count 277 K/mm3 (150-450); Red Blood Count 4.38 M/mm3 (4.1-5.4); Red Cell Distribution Width 14.8 % (11.5-14.0); White Blood Count 8.4 K/mm3 (4.0-10.5)
[2020-12-24 02:59] LABS: Appearance SLIGHTLY CLOUDY (CLEAR); Bilirubin NEGATIVE (NEGATIVE); Blood NEGATIVE Ery/ul (0-5); Glucose NEGATIVE (NEGATIVE); Ketones NEGATIVE (NEGATIVE); Leukocyte Esterase NEGATIVE (NEGATIVE); Mucus SLIGHT /HPF (NEGATIVE); Nitrite NEGATIVE (NEGATIVE); Protein,Urine Dip NEGATIVE (Negative); RBC 0-2 /HPF (0-2); Urobilinogen NEGATIVE mg/dL (0-1); WBC 0-2 /HPF (0-5)
[2020-12-24 03:08] LABS: Amphetamine,Urine NEGATIVE (NEGATIVE); Barbiturate,Urine NEGATIVE (NEGATIVE); Benzodiazepine,Urine POSITIVE (NEGATIVE); Cocaine,Urine NEGATIVE (NEGATIVE); Methadone,Urine NEGATIVE (NEGATIVE); Opiate,Urine NEGATIVE (NEGATIVE); PCP,Urine NEGATIVE (NEGATIVE); THC,Urine NEGATIVE (NEGATIVE)
[2020-12-24 03:16] LABS: ALBUMIN 3.6 g/dL (3.5-5.0); ALKALINE PHOSPHATASE 97 U/L (38-126); ANION GAP 12.7 MEQ/L (5-15); BLOOD UREA NITROGEN 13 mg/dL (7-17); CHLORIDE 109 mmol/L (98-107); Calcium 8.6 mg/dL (8.4-10.2); Carbon Dioxide 22 mmol/L (22-30); Creatinine 1 0.94 mg/dL (0.52-1.04); EST GLOMERULAR FILTRATION RATE > 60.0 ML/MIN; ETHYL ALCOHOL < 10 mg/dL (0-10); Glucose 93 mg/dL (74-106); MAGNESIUM 2.2 mg/dL (1.6-2.3); Potassium 3.7 mmol/L (3.5-5.1); SGOT/AST 25 U/L (14-36); SGPT/ALT 19 U/L (0-35); SODIUM 140 mmol/L (137-145); TROPONIN < 0.012 ng/mL (0.000-0.034); Total Protein 6.6 g/dL (6.3-8.2)
[2020-12-24 04:08] VITALS: BP 111/76; PULSE 87; O2SAT 95
--- NOTE | 2020-12-24 07:47 | XRAY ---
Indication: Confusion. Status post fall. Multiple contiguous axial images obtained through the head without contrast. Comparison: None Age-appropriate global atrophy and minimal periventricular degenerative micro-ischemia. No acute intracranial hemorrhage, abnormal extra-axial fluid collection, or mass effect. Fourth ventricle is midline without hydrocephalus. Atkins-white matter differentiation preserved. Bony calvarium intact. Visualized paranasal sinuses and mastoid air cells are clear. Impression: Normal aging brain. No acute intracranial abnormalities. Comment: Preliminary interpretation was made by [facility]. No critical discrepancy.
== END 2020-12-24 04:28 | disposition home or self-care (01) ==
LOC: ED 01:01
DX: R40.0 Somnolence (principal); F19.988 Other psychoactive substance use, unspecified with other psychoactive substance-induced disorder; W19.XXXA Unspecified fall, initial encounter
CPT/HCPCS: 36000; 36415; 70450; 80053; 80307; 81001; 83735; 84484; 85025; 99284; 99291; G0480